=== PATIENT | female | born 1930 | race Caucasian/White ===

== ENCOUNTER 2016-08-18 08:52 | Inpatient (IN) | payer OTHER, BC ==
[2016-08-18] MEDS ORDERED: ONDANSETRON 4 MG/2 ML VIAL IVPB ONE (09:50)
[2016-08-18 09:53] VITALS: BMI 20.1
--- NOTE | 2016-08-18 09:57 | PDOC ---
History of Present Illness - General Chief Complaint: Pain, Acute Stated Complaint: SENT BY PCP,ABD PAIN Time Seen by Provider: 08/18/16 09:09 History Source: Patient, Family (daughter) Exam Limitations: No Limitations - History of Present Illness Initial Comments: 86 y/o F w/PMH of IBS, HTN, HLD, glaucoma presents to ER for abdominal pain and vomiting. Pt states she began having abd pain approximately 2 days ago. Pt's daughter called PCP yesterday night who told pt to come to ER at that time but came in today due to continuing of symptoms. At this time she went to [facility] and had clams. She had 1 episode of vomiting and some upper abdominal pain. Yesterday she continued to have 3 episodes of vomiting which was non- bloody, non-bilious, with continued abdominal pain which was unchanged. The pain is radiated as a 3/10 and described more as a discomfort with occasional radiation to the back. She has not been eating or drinking since her meal 2 days ago. Last BM was 2 days ago and pt states she has not been able to pass gas for 1-2 days. In the emergency room her BP was noted to be 234/96. She states her systolic normally runs in the 180s. She denies fevers, chills, recent travel, sick contacts, chest pain, light-headedness, dizziness, visual changes, ringing in ears, dysuria, blood in stool, blood in urine. Smokes 6-7 cigarettes per day since a teenager. Social alcohol use. 3 abdominal surgeries in the past: Hysterectomy, L and R Salpingectomy. PCP: Dr. Grant Past History - Past Medical History Allergies/Adverse Reactions: Allergies Allergy/AdvReac Type Severity Reaction Status Date / Time No Known Allergies Allergy Verified 08/18/16 09:32 Home Medications: Ambulatory Orders Amlodipine Besylate [Norvasc -] 5 mg PO DAILY 08/18/16 Atorvastatin Ca [Lipitor] 40 mg PO HS 08/18/16 Docusate Sodium [Colace -] 200 mg PO DAILY 08/18/16 Famotidine 20 mg PO DAILY 08/18/16 Ferrous Sulfate [Feosol] 325 mg PO TID 08/18/16 Folic Acid 1 mg PO DAILY 08/18/16 Losartan Potassium [Cozaar -] 25 mg PO DAILY 08/18/16 Mesalamine [Pentasa] 0 mg PO BID 08/18/16 Mirtazapine [Remeron -] 15 mg PO HS 08/18/16 Review of Systems - Review of Systems Able to Perform ROS?: Yes Comments:: CONSTITUTIONAL: +loss of appetite Absent: fever, chills, diaphoresis HEENT: Absent: rhinorrhea, throat pain, ear pain, eye pain, visual Changes CARDIOVASCULAR: Absent: chest pain, palpitations, irregular heart rate, lightheadedness, peripheral edema RESPIRATORY: Absent: cough, shortness of breath, wheezing, stridor, hemoptysis GASTROINTESTINAL: +abdominal pain, nausea, vomiting Absent: abdominal distension, diarrhea, constipation, melena, hematochezia GENITOURINARY: Absent: dysuria, hematuria MUSCULOSKELETAL: Absent: joint swelling NEUROLOGIC: Absent: headache, dizziness, unsteady gait, mental status changes PSYCHIATRIC: Absent: anxiety, depression, suicidal or homicidal ideation, hallucinations. *Physical Exam - Physical Exam Comments: GENERAL: Well developed, well nourished. Awake and alert. In no acute distress. HEENT: Fundoscopy with non-engorged vessels. Normocephalic, atraumatic. PERRLA, EOMI. No conjunctival pallor. Sclera are non- icteric. Oropharynx is clear. NECK: Supple. Full ROM. No JVD. Carotid pulses 2+ and symmetric, without bruits. No thyromegaly. No lymphadenopathy. CARDIOVASCULAR: Regular rate and rhythm. No murmurs, rubs, or gallops. Distal pulses are 2+ and symmetric. PULMONARY: No evidence of respiratory distress. Lungs clear to auscultation bilaterally. No wheezing, rales or rhonchi. ABDOMINAL: +diffuse tenderness. [place] negative. Hypoactive bowel sounds. Soft abdomen. No rebound or guarding. MUSCULOSKELETAL: No bony deformities or tenderness. No CVA tenderness. EXTREMITIES: No edema. No calf tenderness. SKIN: Warm and dry. No rashes. No jaundice. NEUROLOGICAL: Alert, awake, appropriate. Cranial nerves 2-12 grossly intact. Gait is normal without ataxia. PSYCHIATRIC: Cooperative. Good eye contact. Appropriate mood and affect. Heart Score/ECG Review - ECG Intrepretation Comment:: EKG: NSR @ 82 bpm Left axis deviation QTc 464 ms ED Treatment Course - LABORATORY CBC & Chemistry Diagram: 08/18/16 10:02 08/18/16 10:30 Medical Decision Making - Medical Decision Making 08/18/16 09:57 Will work up patient for hypertensive emergency as BP is 234/96. Will also work up pt for abdominal pain for pancreatitis, obstruction, cholecystitis, cholelithiasis, aortic aneurysm, VT Ordered: CBCD, CMP, lipase, EKG, UA, cardiac profile IV zofran 4 mg, pepcid IV 20 mg Amlodipine PO 5 mg and Losartan 25 mg PO (home meds which the pt did not take today) ordered for HTN. 08/18/16 10:03 EKG: NSR @ 82 bpm Left axis deviation QTc [address] segment changes. 08/18/16 10:21 Will give enalpril 1.25 mg IV as well 08/18/16 11:16 WBC 13.2; Still awaiting CMP. Pt in bed comfortable at this time. 08/18/16 11:31 CMP shows Cr of 1.7 Alk phos, ALT/AST wnl Called Dr. Grant's office and requested latest labs. Office is faxing over labs at this time. 08/18/16 11:38 Cr on 06/21/16 according to office records was 2.28 At this time with chronic renal insufficiency will get abd and pelvis CT w/o contrast to r/o SBO 08/18/16 11:46 BP is now at 183/85, pt still asymptomatic. Pt at goal currently with approximately 22% drop in BP. 08/18/16 13:49 CT shows: No evidence of SBO. Normal stool burden in the colon with multiple diverticula mainly in the descending and sigmoid colon without evidence of acute diverticulitis. Pancreas, gallbladder, and both adrenal glands appear unremarkable. Anuerysmal dilatation of the infrarenal abdominal aorta is again seen now measuring 4.9 cm in AP dimension. On the prior exam it measured 4.5 cm. 08/18/16 14:09 Pt's BP still elevated at 180/93. Pt with tenderness in RLQ but with no nausea currently. Case discussed with Dr. Grant, pt to be admitted inpatient. Pt to be given another 5 mg PO amlodipine at this time. As pt has history of IBS and acute colitis will also consult Dr. Kelly and Dr. Camargo as per Dr. Grant. Pt to be admitted for acute colitis. 08/18/16 15:[address] Trivedi who states that acute colitis is unlikely with CT abd/ pelvis not showing evidence of acute colitis. The patient also has a more extensive history with Dr. Miramontes and may require changing to consult to Dr. Miramontes unless otherwise requested by Dr. Grant. 08/18/16 15:[address] Grant who agrees that consult should be changed to Dr. Miramontes. *DC/Admit/Observation/Transfer Diagnosis at time of Disposition: Acute colitis, Nausea & vomiting Abdominal pain Qualifiers: Abdominal location: unspecified location Qualified Code(s): R10.9 - Unspecified abdominal pain - Discharge Dispostion Condition at time of disposition: Stable Admit: Yes - Referrals
[2016-08-18] MEDS ORDERED: FAMOTIDINE 20 MG/50 ML IVPB 50 ML IVPB ONE ×2 (10:08→10:16)
[2016-08-18] MEDS ORDERED: amLODIPine BESYLATE 5 MG TABLET (FP) PO ONE ×3 (10:11→14:06)
[2016-08-18] MEDS ORDERED: LOSARTAN POTASSIUM 25 MG TABLET PO ONE (10:11)
[2016-08-18] MEDS ORDERED: ONDANSETRON 4 MG/2 ML VIAL ONE (10:16)
[2016-08-18] MEDS ORDERED: ENALAPRILAT DIHYDRATE 1.25 MG/1 ML VIAL IVPB ONE (10:20)
[2016-08-18] MEDS ORDERED: ENALAPRILAT DIHYDRATE 2.5 MG/2 ML VIAL IVPB ONE (10:26)
[2016-08-18] MEDS ORDERED: amLODIPine BESYLATE 5 MG TABLET (FP) ONE ×2 (10:26→14:23)
[2016-08-18] MEDS ORDERED: LOSARTAN POTASSIUM 25 MG TABLET ONE (10:26)
--- NOTE | 2016-08-18 10:28 | PDOC ---
Attending Attestation - Resident Resident Name: Kingsley Duran - ED Attending Attestation I have performed the following: I have examined & evaluated the patient, The case was reviewed & discussed with the resident, I agree w/resident's findings & plan, Exceptions are as noted - HPI HPI: 08/18/16 10:25 86-year-old female with history of abdominal surgeries presents with abdominal pain with nausea/vomiting and decreased rectal output for several days. - Physicial Exam PE: 08/18/16 10:26 Hypertensive, afebrile. Abdomen is soft but tender diffusely with guarding primarily in the right abdomen - Medical Decision Making 08/18/16 10:26 Patient seen and evaluated with the resident. I agree with the overall evaluation, assessment, and management with the following summary of visit: 86-year-old female with abdominal pain/intractable nausea vomiting for several days in the setting of decreased rectal output. Presentation seems most consistent with SBO, she is hypertensive likely secondary to not tolerating her blood pressure medications, has no signs or symptoms of endorgan injury, EKG is nonischemic. Labs, urinalysis Pain control, IV fluids, antiemetics Etiology of the abdomen and pelvis Blood pressure control Reassess, likely admission Heart Score/ECG Review #1 ECG reviewed & interpreted by me at: 09:20 General ECG Interpretation: Sinus Rhythm, Normal Rate (82), Normal Intervals, No acute ischemic changes
[2016-08-18 10:41] LABS: BASOPHIL 0.2 % (0-2.0); EOSINOPHIL 0.2 % (0-4.5); MCH 28.1 pg (25.7-33.7); MCHC 32.9 g/dl (32.0-36.0); MEAN CELL VOLUME 85.4 fl (80-96); MEAN PLT VOLUME 6.8 fl (7.5-11.1); NEUTROPHILS 87.7 % (42.8-82.8); PLATELET COUNT 306 K/MM3 (134-434); RDW 14.9 % (11.6-15.6); WHITE BLOOD COUNT 13.2 K/mm3 (4.0-10.0)
[2016-08-18 11:09] LABS: ALBUMIN 4.4 g/dl (3.4-5.0); BILIRUBIN,TOTAL 0.6 mg/dL (0.2-1.0); CREATININE 1.7 mg/dL (0.55-1.02); TOT PROT 9.1 g/dl (6.4-8.2)
[2016-08-18 11:12] LABS: TROPONIN I 0.02 ng/ml (0.00-0.05)
--- NOTE | 2016-08-18 12:52 | EKG ---
Test Reason : Blood Pressure : / mmHG Vent. Rate : 082 BPM Atrial Rate : 082 BPM P-R Int : 132 ms QRS Dur : 084 ms QT Int : 398 ms P-R-T Axes : -09 -37 052 degrees QTc Int : 464 ms POOR DATA QUALITY, INTERPRETATION MAY BE ADVERSELY AFFECTED NORMAL SINUS RHYTHM LEFT AXIS DEVIATION ABNORMAL ECG WHEN COMPARED WITH ECG OF 11-FEB-2008 21:13, NO SIGNIFICANT CHANGE WAS FOUND Confirmed by EDUAR GRADY MD ([id number]) on 08/18/2016 12:52:21 PM Referred By: Confirmed By:EDUAR GRADY MD
[2016-08-18] MEDS ORDERED: LABETALOL HCL 5 MG/1 ML (100MG/20 ML VIAL) IVPUSH ONE (15:44)
--- NOTE | 2016-08-18 16:09 | CONSULT ---
Consult Consult Specialty:: Surgery Referred by:: Rudy yu Reason for Consultation:: Abdominal pain. - History of Present Illness Chief Complaint: Abdominal pain for the past week, currently not in pain. She is nauseous, went to Dr. Grant's office who suggested hospiatlisation. Denies any diarrhoea or rectal bleeding. - History Source History Provided By: Patient, Family Member - Past Medical History Gastrointestinal: Yes: Inflamatory Bowel Disease - Smoking History Smoking history: Current every day smoker Have you smoked in the past 12 months: Yes Aproximately how many cigarettes per day: 7 Home Medications - Allergies Allergies/Adverse Reactions: Allergies Allergy/AdvReac Type Severity Reaction Status Date / Time No Known Allergies Allergy Verified 08/18/16 09:32 - Home Medications Home Medications: Ambulatory Orders Amlodipine Besylate [Norvasc -] 5 mg PO DAILY 08/18/16 Atorvastatin Ca [Lipitor] 40 mg PO HS 08/18/16 Docusate Sodium [Colace -] 200 mg PO DAILY 08/18/16 Famotidine 20 mg PO DAILY 08/18/16 Ferrous Sulfate [Feosol] 325 mg PO TID 08/18/16 Folic Acid 1 mg PO DAILY 08/18/16 Losartan Potassium [Cozaar -] 25 mg PO DAILY 08/18/16 Mesalamine [Pentasa] 0 mg PO BID 08/18/16 Mirtazapine [Remeron -] 15 mg PO HS 08/18/16 Physical Exam Vital Signs: Vital Signs Temperature 97.3 F L 08/18/16 09:15 Pulse Rate 79 08/18/16 15:20 Respiratory Rate 16 08/18/16 15:20 Blood Pressure 206/105 08/18/16 15:20 O2 Sat by Pulse Oximetry (%) 100 08/18/16 15:20 Imaging - Results Cat Scan: Report Reviewed Problem List - Problems (1) Abdominal pain Code(s): R10.9 - UNSPECIFIED ABDOMINAL PAIN Qualifiers: Abdominal location: unspecified location Qualified Code(s): R10.9 - Unspecified abdominal pain (2) Nausea & vomiting Code(s): R11.2 - NAUSEA WITH VOMITING, UNSPECIFIED (3) Colitis Code(s): K52.9 - NONINFECTIVE GASTROENTERITIS AND COLITIS, UNSPECIFIED Assessment/Plan Suggest vascular surgery for assessment of the patency of the vascular graft. No acute abdomen at this time. Will follow.
[2016-08-18] MEDS ORDERED: ONDANSETRON 4 MG/2 ML VIAL IVPB PRN (16:20)
--- NOTE | 2016-08-18 16:27 | HP ---
Admitting History and Physical - Admission Chief Complaint: 86 Y.Of WAS bi BY HER DAUGHTER FOR INTRACTABLE VOMITING FOR 24 HRS. AND RIGHT ABDOMINAL PAIN History of Present Illness: 2016 AORTIC ABDOMINAL ANEURYSMS STENTS. 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 sUBSEQUENTLY UNDERWENT REHAB WITH RECOVERY OF KIDNEYS FX. HTN HISTORY OF COLITIS, ?IBD AND ASACOL TREATMENT. 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 Cardiovascular: Yes: HTN Pulmonary: Yes: COPD Gastrointestinal: Yes: Inflamatory Bowel Disease Hepatobiliary: No: Cirrhosis, Cholelithiasis, Cholecystitis, Choledocholithiasis , Hepatitis A, Hepatitis B, Hepatitis C, Other Renal/: Yes: Renal Inusuff Reproductive: Yes: Postmenopausal Heme/Onc: Yes: Anemia Infectious Disease: No: AIDS, C-Diff, Herpes Zoster, HIV, MRSA, STD's, Tuberculosis, VREF, Other Psych: No: Addictions, Anxiety, Bipolar, Depression, Panic, Psychosis, Schizophrenia, Other Musculoskeletal: Yes: Osteoarthritis Rheumatology: No: Fibromyalgia, Gout, Lupus, Rheumatoid Arthritis, Sarcoidosis, Vasculitis, Other ENT: No: Allergic Rhinitis, Sinusitis, Other Dermatology: No: Basal Cell, Cellulitis, Eczema, Melanoma, Psoriasis, Squamous Cell, Other - Past Surgical History Past Surgical History: Yes: AAA Repair - Smoking History Smoking history: Current every day smoker Have you smoked in the past 12 months: Yes Aproximately how many cigarettes per day: 7 - Social History Usual Living Arrangement: Yes: Alone History of Recent Travel: No Home Medications - Allergies Allergies/Adverse Reactions: Allergies Allergy/AdvReac Type Severity Reaction Status Date / Time No Known Allergies Allergy Verified 08/18/16 09:32 - Home Medications Home Medications: Ambulatory Orders Amlodipine Besylate [Norvasc -] 5 mg PO DAILY 08/18/16 Atorvastatin Ca [Lipitor] 40 mg PO HS 08/18/16 Docusate Sodium [Colace -] 200 mg PO DAILY 08/18/16 Famotidine 20 mg PO DAILY 08/18/16 Ferrous Sulfate [Feosol] 325 mg PO TID 08/18/16 Folic Acid 1 mg PO DAILY 08/18/16 Losartan Potassium [Cozaar -] 25 mg PO DAILY 08/18/16 Mesalamine [Pentasa] 0 mg PO BID 08/18/16 Mirtazapine [Remeron -] 15 mg PO HS 08/18/16 Family Disease History - Family Disease History Family History: Unremarkable Review of Systems - Review of Systems Constitutional: reports: Loss of Appetite, Unintentional Wgt. Loss, Weakness Eyes: denies: Blind Spots, Blurred Vision, Double Vision, Photophobia HENT: denies: Ear Discharge, Epistaxis, Gingival Bleeding, Nasal Congestion, Throat Pain Neck: denies: Decreased ROM, Lumps, Pain on Movement, Swollen Glands Cardiovascular: reports: Edema. denies: Chest Pain Respiratory: denies: Cough, Exercise Intolerance, Snoring, SOB Gastrointestinal: reports: Abdominal Pain, Bloating, Nausea, Vomiting. denies: Rectal Bleeding, Vomiting Blood Genitourinary: denies: Discharge, Dysuria, Flank Pain, Hematuria Musculoskeletal: reports: No Symptoms Integumentary: reports: No Symptoms Neurological: denies: Change in LOC, Change in Speech, Confusion, Headache Hematology/Lymphatic: reports: No Symptoms Psychiatric: reports: No Symptoms, Altered Sleep Pattern Physical Examination Vital Signs: Vital Signs Temperature 97.3 F L 08/18/16 09:15 Pulse Rate 79 08/18/16 15:20 Respiratory Rate 16 08/18/16 15:20 Blood Pressure 206/105 08/18/16 15:20 O2 Sat by Pulse Oximetry (%) 100 08/18/16 15:20 Constitutional: Yes: Anxious, Mild Distress Eyes: Yes: Conjunctiva Clear, EOM Intact HENT: Yes: Atraumatic, Normocephalic Neck: Yes: Supple, Trachea Midline Cardiovascular: Yes: Regular Rate and Rhythm. No: Bradycardia, Tachycardia, JVD Respiratory: Yes: Regular, CTA Bilaterally. No: Accessory Muscle Use Gastrointestinal: Yes: Soft, Tenderness (rlq). No: Abdomen, Obese, Ascites, Palpable Mass ...Rectal Exam: No: Mass Musculoskeletal: Yes: WNL Extremities: No: Calf Tenderness, Cold, Cyanosis Edema: Yes Edema: LLE: 1+, RLE: 1+ Peripheral Pulses WNL: Yes Peripheral Pulses: Left Doralis Pedis: 1+, Right Dorsalis Pedis: 1+ Integumentary: Yes: WNL Neurological: Yes: Alert, Oriented. No: Aphasia ...Motor Strength: WNL Psychiatric: Yes: WNL, Alert, Oriented. No: Agitated, Suicidal Ideation Imaging - Results Cat Scan: Report Reviewed EKG: Report Reviewed Problem List - Problems (1) Abdominal pain Assessment/Plan: cAN BE DUE TO ACUTE DIVERTICULITIS OF THE CECUM COLITIS POSSIBLE ACUTE GASTRO-ENTERITIS, NEEDS BETTER ct WITH po CONSULT-WHEN NOT VOMITIG IV UNASYN, IV FLUIDS, NPO, ZOFRAN PRN, GI CONSULT SPOKE TO SURGEON. Code(s): R10.9 - UNSPECIFIED ABDOMINAL PAIN Qualifiers: Abdominal location: right lower quadrant Qualified Code(s): R10.31 - Right lower quadrant pain (2) AAA (abdominal aortic aneurysm) Assessment/Plan: RECENTLY REPAIRED. WILL ASK vASCULAR CONSULT. Code(s): I71.4 - ABDOMINAL AORTIC ANEURYSM, WITHOUT RUPTURE Qualifiers: Presence of rupture: without rupture Qualified Code(s): I71.4 - Abdominal aortic aneurysm, without rupture (3) HTN (hypertension) Assessment/Plan: eXACERBATED BY NOT BEING ABLE TO TAKE ORAL MEDS rESTART MEDS cARDIOLOGY iV lASIX, ntp. Code(s): I10 - ESSENTIAL (PRIMARY) HYPERTENSION Qualifiers: Hypertension type: essential hypertension Qualified Code(s): I10 - Essential (primary) hypertension
[2016-08-18] MEDS ORDERED: AMPICILLIN NA/SULBACTAM NA 100 ML IVPB SCH ×3 (16:30→18:00)
[2016-08-18] MEDS ORDERED: FUROSEMIDE 40 MG/4 ML INJECTABLE VIAL IVPUSH ONE (16:36)
[2016-08-18] MEDS: NITROGLYCERIN 2% OINTMENT - 1GM PACKET TD SCH ×2 (16:58→21:37)
[2016-08-18] MEDS: D5-1/2NS+20 MEQ KCL - 1,000 ML IV SCH (17:40)
[2016-08-18] MEDS ORDERED: NITROGLYCERIN 2% OINTMENT - 1GM PACKET TD SCH (18:00)
--- NOTE | 2016-08-18 20:14 | CONSULT ---
Consult Consult Specialty:: Pulm/CCM Reason for Consultation:: hypertensive urgency - History of Present Illness Chief Complaint: n/v abd pain History of Present Illness: This is a 86 yo woman with PMH: COPD (active tobacco), HTN, HL, IBS (asacol), AAA s/p stent (2016)c /b CVA and AFR briefly on iHD now resolved with CKD (SCr 2.2)who present with progressive nausea and vomiting (NBNB) over the last 4 days with associated colicy abdomenal pain (3/10). She has had decreased po intake and no BMs. In the ED she was found to have hypertensive urgency (BP: 234/96). She was treated for her HTN with losartan, amlodipine and enalapril iv. SBP improved 180s. Workup for abd pain negative for pancreatitis, LFTs WNL. CTAP shows: No evidence of SBO. Normal stool burden in the colon with multiple diverticula mainly in the descending and sigmoid colon without evidence of acute diverticulitis. Pancreas, gallbladder, and both adrenal glands appear unremarkable. Aneurysmal dilatation of the infrarenal abdominal aorta 4.9 cm in AP dimension. Surgery was consulted w/ evidence of acute abdomen on exam. LAbs significant for WBC: 13.2, ESR: 56, SCr 1.7, lipase 153. She was started on unasyn for coverage of abd sepsis. PAtient transferred to ICU for management of hypertension. 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 Cardio/Vascular: Yes: HTN Pulmonary: Yes: COPD Gastrointestinal: Yes: Inflamatory Bowel Disease Hepatobiliary: No: Cirrhosis, Cholelithiasis, Cholecystitis, Choledocholithiasis , Hepatitis A, Hepatitis B, Hepatitis C, Other Renal/: Yes: Renal Inusuff ...: No Infectious Disease: No: AIDS, C-Diff, Herpes Zoster, HIV, MRSA, STD's, Tuberculosis, VREF, Other Psych: No: Addictions, Anxiety, Bipolar, Depression, Panic, Psychosis, Schizophrenia, Other Musculoskeletal: Yes: Osteoarthritis Rheumatology: No: Fibromyalgia, Gout, Lupus, Rheumatoid Arthritis, Sarcoidosis, Vasculitis, Other ENT: No: Allergic Rhinitis, Sinusitis, Other Dermatology: No: Basal Cell, Cellulitis, Eczema, Melanoma, Psoriasis, Squamous Cell, Other - Past Surgical History Past Surgical History: Yes: AAA Repair - Alcohol/Substance Use Hx Alcohol Use: No - Smoking History Smoking history: Current every day smoker Have you smoked in the past 12 months: Yes Aproximately how many cigarettes per day: 7 - Social History History of Recent Travel: No Home Medications - Allergies Allergies/Adverse Reactions: Allergies Allergy/AdvReac Type Severity Reaction Status Date / Time No Known Allergies Allergy Verified 08/18/16 09:32 - Home Medications Home Medications: Ambulatory Orders Amlodipine Besylate [Norvasc -] 5 mg PO DAILY 08/18/16 Atorvastatin Ca [Lipitor] 40 mg PO HS 08/18/16 Docusate Sodium [Colace -] 200 mg PO DAILY 08/18/16 Famotidine 20 mg PO DAILY 08/18/16 Ferrous Sulfate [Feosol] 325 mg PO TID 08/18/16 Folic Acid 1 mg PO DAILY 08/18/16 Losartan Potassium [Cozaar -] 25 mg PO DAILY 08/18/16 Mesalamine [Pentasa] 1,500 mg PO BID 08/18/16 Mirtazapine [Remeron -] 15 mg PO HS 08/18/16 Family Disease History - Family Disease History Family History: Unremarkable Review of Systems - Review of Systems Constitutional: reports: Loss of Appetite Gastrointestinal: reports: Abdominal Pain, Nausea, Vomiting Pain Intensity: 3 Physical Exam Vital Signs: Vital Signs Temperature 98.1 F 08/18/16 19:00 Pulse Rate 78 08/18/16 19:00 Respiratory Rate 18 08/18/16 19:00 Blood Pressure 185/89 08/18/16 19:00 O2 Sat by Pulse Oximetry (%) 98 08/18/16 18:17 Current Medications Potassium Chloride/Dextrose/Sod Cl (D5-1/2ns+20 Meq Kcl -) 1,000 mls @ 100 mls/ hr IV ASDIR [facility] Last Admin: 08/18/16 17:40 Dose: 100 mls/hr Ampicillin Sodium/Sulbactam Sodium (Unasyn 1.5 Gm (Pre-Docked)) 100 mls @ 200 mls/hr IVPB BID@0600,1800 [facility] Last Admin: 08/18/16 18:10 Dose: 200 mls/hr Nitroglycerin (Nitro-Bid 2% Paste -) 1 inch TD Q6HPO [facility] Last Admin: 08/18/16 16:58 Dose: 1 inch Ondansetron HCl (Zofran Injection) 4 mg IVPB Q6H PRN PRN Reason: NAUSEA Pantoprazole Sodium (Protonix -) 40 mg PO DAILY ELLE Constitutional: Yes: No Distress, Calm Eyes: Yes: EOM Intact Cardiovascular: Yes: Regular Rate and Rhythm, S1, S2 Respiratory: Yes: CTA Bilaterally Gastrointestinal: Yes: Normal Bowel Sounds, Soft, Tenderness Edema: LLE: 1+, RLE: 1+ Integumentary: Yes: WNL Neurological: Yes: Alert, Oriented Psychiatric: Yes: Oriented Labs: CBCD WBC 13.2 K/mm3 (4.0-10.0) H 08/18/16 10:02 RBC 4.34 M/mm3 (3.60-5.2) 08/18/16 10:02 Hgb 12.2 GM/dL (10.7-15.3) 08/18/16 10:02 Hct 37.1 % (32.4-45.2) 08/18/16 10:02 MCV 85.4 fl (80-96) 08/18/16 10:02 MCHC 32.9 g/dl (32.0-36.0) 08/18/16 10:02 RDW 14.9 % (11.6-15.6) 08/18/16 10:02 Plt Count 306 K/MM3 (134-434) 08/18/16 10:02 MPV 6.8 fl (7.5-11.1) L 08/18/16 10:02 CMP Sodium 137 mmol/L (136-145) 08/18/16 10:30 Potassium 3.6 mmol/L (3.5-5.1) 08/18/16 10:30 Chloride 96 mmol/L (98-107) L 08/18/16 10:30 Carbon Dioxide 31 mmol/L (21-32) 08/18/16 10:30 Anion Gap 10 (8-16) 08/18/16 10:30 BUN 25 mg/dL (7-18) H 08/18/16 10:30 Creatinine 1.7 mg/dL (0.55-1.02) H 08/18/16 10:30 Creat Clearance w eGFR 28.36 (>60) 08/18/16 10:30 Random Glucose 140 mg/dL (74-106) H 08/18/16 10:30 Calcium 10.0 mg/dL (8.5-10.1) 08/18/16 10:30 Total Bilirubin 0.6 mg/dL (0.2-1.0) 08/18/16 10:30 AST 21 U/L (15-37) 08/18/16 10:30 ALT 18 U/L (12-78) 08/18/16 10:30 Alkaline Phosphatase 104 U/L (45-117) 08/18/16 10:30 Total Protein 9.1 g/dl (6.4-8.2) H 08/18/16 10:30 Albumin 4.4 g/dl (3.4-5.0) 08/18/16 10:30 CARDIAC ENZYMES Creatine Kinase 468 IU/L (26-192) H 08/18/16 10:30 Troponin I 0.02 ng/ml (0.00-0.05) 08/18/16 10:30 Laboratory Tests 08/18/16 16:18 ESR 56 H Imaging - Results Cat Scan: Report Reviewed, Image Reviewed Problem List - Problems (1) AAA (abdominal aortic aneurysm) Code(s): I71.4 - ABDOMINAL AORTIC ANEURYSM, WITHOUT RUPTURE Qualifiers: Presence of rupture: without rupture Qualified Code(s): I71.4 - Abdominal aortic aneurysm, without rupture (2) Abdominal pain Code(s): R10.9 - UNSPECIFIED ABDOMINAL PAIN Qualifiers: Abdominal location: right lower quadrant Qualified Code(s): R10.31 - Right lower quadrant pain (3) Nausea & vomiting Code(s): R11.2 - NAUSEA WITH VOMITING, UNSPECIFIED (4) Hypertensive urgency Code(s): I16.0 - HYPERTENSIVE URGENCY (5) COPD (chronic obstructive pulmonary disease) Code(s): J44.9 - CHRONIC OBSTRUCTIVE PULMONARY DISEASE, UNSPECIFIED (6) CKD (chronic kidney disease) Code(s): N18.9 - CHRONIC KIDNEY DISEASE, UNSPECIFIED Assessment/Plan a/p: 86 yo woman COPD, HTN, HL, ABS, CKD, AAA s/p stent (2015) presenting with 4 days of progressive n/v and abdominal pain found to have hypertensive urgency. ABD pain w/ n/v in the setting of normal abdominal exam c/f intermittent bowel ischemia vs IBS flair (ESR 56, though no colitis seen on CT) -Cardiology consulted -restarted on antiHTN meds -Goal SBP decreased ~20% tonight (SBP 170-180) -vascular consult -will likely need CTAP w/ IV/po contrast -will check lactate to eval for possible ischemia -renal dose medications -will cont ABX -IV fluids -zofran prn -O2 for sat >88% -incentive spirometry -DVT prophylaxis -PPI Boerem ACNP Pulm/CCM CCT: 35m
[2016-08-18] MEDS ORDERED: hydrALAZINE HCL 20 MG/ML VIAL IM PRN (21:22)
[2016-08-18 21:25] LABS: URINE APPEARANCE CLEAR; URINE BILIRUBIN NEGATIVE (NEGATIVE); URINE COLOR STRAW; URINE GLUCOSE (UA) NEGATIVE (NEGATIVE); URINE KETONE NEGATIVE (NEGATIVE); URINE LEUK ESTERASE NEGATIVE (NEGATIVE); URINE NITRITE NEGATIVE (NEGATIVE); URINE UROBILINOGEN NEGATIVE E.U./dl (0.2-1.0)
[2016-08-18 21:31] LABS: URINE BLOOD 1+ (NEGATIVE); URINE PROTEIN 2+ (NEGATIVE)
[2016-08-18 21:40] LABS: URINE HYALINE CAST 1 /lpf; URINE MUCUS RARE; URINE RBC 3 /hpf (0-3); URINE WBC 1 /hpf (3-5)
[2016-08-18] MEDS: NICOTINE 14 MG/24 HOURS TOPICAL PATCH TD SCH (22:41)
[2016-08-19] MEDS: AMPICILLIN NA/SULBACTAM NA 1.5 GM/100 ML PRE-DOCKED IVPB SCH ×3 (01:00→18:02)
[2016-08-19] MEDS: NITROGLYCERIN 2% OINTMENT - 1GM PACKET TD SCH ×4 (01:41→19:28)
[2016-08-19] MEDS ORDERED: AMPICILLIN NA/SULBACTAM NA 1.5 GM in SODIUM CHLORIDE 100 ML IVPB SCH (02:00)
[2016-08-19 06:11] LABS: BASOPHIL 0.3 % (0-2.0); EOSINOPHIL 0.7 % (0-4.5); MCH 27.6 pg (25.7-33.7); MCHC 32.4 g/dl (32.0-36.0); MEAN CELL VOLUME 85.3 fl (80-96); MEAN PLT VOLUME 6.9 fl (7.5-11.1); NEUTROPHILS 80.8 % (42.8-82.8); PLATELET COUNT 275 K/MM3 (134-434); RDW 15.1 % (11.6-15.6); WHITE BLOOD COUNT 12.3 K/mm3 (4.0-10.0)
[2016-08-19 06:32] LABS: ALBUMIN 3.6 g/dl (3.4-5.0); MAGNESIUM 2.2 mg/dL (1.8-2.4); PHOSPHOROUS 3.8 mg/dL (2.5-4.9)
[2016-08-19 06:35] LABS: BILIRUBIN,TOTAL 0.5 mg/dL (0.2-1.0); COCKROFT - GAULT 16.116; CREATININE 1.9 mg/dL (0.55-1.02); TOT PROT 7.6 g/dl (6.4-8.2)
--- NOTE | 2016-08-19 07:19 | PN ---
Physical Exam: SUBJECTIVE: Patient seen and examined says she feels a hungry. denies chest pain, palpitations, changes in vision, eye pain, headache, vomiting , constipation/diarrhea, sob, difficulty breathing. OBJECTIVE: Vital Signs Period Temp Pulse Resp BP Sys/Rossi Pulse Ox Last 24 Hr 98.1 F-98.5 F 73-87 16-23 136-210/71-105 94-100 GENERAL: The patient is awake, alert, in no acute distress. HEAD: Normal with no signs of trauma. EYES: PERRL, extraocular movements intact, sclera anicteric, conjunctiva clear. No ptosis. ENT: nares patent, oropharynx clear without exudates, dry mucous membranes. no erythema/oral lesions. NECK: Trachea midline, full range of motion, supple. LUNGS: Breath sounds equal, clear to auscultation bilaterally, no wheezes, no crackles, no accessory muscle use. HEART: Regular rate and rhythm, S1, S2 without murmur, rub or gallop. ABDOMEN: Soft, TTP in RLQ, nondistended, normoactive bowel sounds, no guarding, no rebound, obturator and psoas's sign neg. well healed midline scar below umbilicus. EXTREMITIES: 2+ DP/radial b/l pulses, warm, well-perfused. NEUROLOGICAL: facial symmetry, Normal speech, 5/5 hand manager federal, hip extension, bicep extension and flexion, ankle dorsi and plantar flexion. SKIN: Warm, dry, normal turgor Laboratory Results - last 24 hr 08/18/16 08/18/16 08/18/16 16:18 20:00 21:30 WBC RBC Hgb Hct MCV MCHC RDW Plt Count MPV Neutrophils % Lymphocytes % Monocytes % Eosinophils % Basophils % ESR 56 H Sodium Potassium Chloride Carbon Dioxide Anion Gap BUN Creatinine Creat Clearance w eGFR Random Glucose Lactic Acid 1.8 Calcium Phosphorus Magnesium Total Bilirubin AST ALT Alkaline Phosphatase Total Protein Albumin Urine Color Straw Urine Appearance Clear Urine pH 6.0 Ur Specific [place] 1.020 Urine Protein 2+ H Urine Glucose (UA) Negative Urine Ketones Negative Urine Blood 1+ H Urine Nitrite Negative Urine Bilirubin Negative Urine Urobilinogen Negative Ur Leukocyte Esterase Negative Urine RBC 3 Urine WBC 1 Ur Epithelial Cells Rare Hyaline Casts 1 Urine Mucus Rare 08/19/16 08/19/16 08/19/16 05:20 05:20 05:20 WBC 12.3 H RBC 4.11 Hgb 11.4 Hct 35.0 MCV 85.3 MCHC 32.4 RDW 15.1 Plt Count 275 MPV 6.9 L Neutrophils % 80.8 Lymphocytes % 8.9 D Monocytes % 9.3 Eosinophils % 0.7 D Basophils % 0.3 ESR Sodium 138 Potassium 3.8 Chloride 98 Carbon Dioxide 27 Anion Gap 13 BUN 25 H Creatinine 1.9 H Creat Clearance w eGFR 24.95 Random Glucose 139 H Lactic Acid 1.0 Calcium 9.0 Phosphorus 3.8 Magnesium 2.2 Total Bilirubin 0.5 AST 13 L D ALT 14 D Alkaline Phosphatase 79 D Total Protein 7.6 Albumin 3.6 Urine Color Urine Appearance Urine pH Ur Specific [place] Urine Protein Urine Glucose (UA) Urine Ketones Urine Blood Urine Nitrite Urine Bilirubin Urine Urobilinogen Ur Leukocyte Esterase Urine RBC Urine WBC Ur Epithelial Cells Hyaline Casts Urine Mucus Active Medications Generic Name Dose Route Start Last Admin Trade Name Freq PRN Reason Stop Dose Admin Ampicillin Sodium/Sulbactam Sodium 1.5 gm 08/19/16 02:00 08/19/16 01:00 Unasyn 1.5 Gm (Pre-Docked) IVPB 1.5 gm Q8H-IV GERMÁN Administration Hydralazine HCl 10 mg 08/18/16 21:22 08/18/16 21:45 Apresoline Injection - IM 10 mg Q6H PRN Administration SBP >180 Potassium Chloride/Dextrose/Sod Cl 1,000 mls @ 100 mls/hr 08/18/16 16:30 17:40 D5-1/2ns+20 Meq Kcl - IV 100 mls/hr ASDIR GERMÁN Administration Nicotine 14 mg 08/18/16 22:00 08/18/16 22:41 Nicoderm Patch - TD 14 mg DAILY GERMÁN Administration Nitroglycerin 1 inch 08/18/16 17:00 08/19/16 06:05 Nitro-Bid 2% Paste - TD 1 inch Q6HPO GERMÁN Administration Ondansetron HCl 4 mg 08/18/16 16:20 08/18/16 21:36 Zofran Injection IVPB 4 mg Q6H PRN Administration NAUSEA Pantoprazole Sodium 40 mg 08/19/16 10:00 Protonix - PO DAILY GERMÁN ASSESSMENT/PLAN: 86 yr woman with HTN, COPD (current smoker) with abdominal infrarenal aortic anuerysm s/p stent placedment, hx of CVA presented to ED with intractable vomiting and abdominal pain for 4 days, found to have enlargement of aortic anuerysm and HTN urgency. Cardiovascular HTN urgency Hydralazine 25mg po q6h germán if SBP >180 Labetalol 100mg po BID if SBP> 160, DBP >100 - plan to titrate up if HR stable and BP remained elevated Norvasc 10mg po daily Nitroglycerin 1inch TD q6h IVF d5-1/2NS+20meq kcl @100cc/hr Aortic aneurysm - increased in size from 4.9 from 4.5, mural thrombus noted on CT scan. consult: dr. Castillo for surgical evaluation Renal (baseline Cr 1.4) PAUL, Cr 1.9 in setting of poor po intake and elevated BP, likely pre-renal - IVF, urine studies, renal ultrasound for further evaluation. consult:Dr. Appiah GI RLQ pain - possibly from right renal ischemia due to poor profusion through renal stent, doppler for further evaluation of flow, vs IBD CT scan with unremarkable pancreas and without colitis Unasyn q8hr, ivpb for possible gastritis as cause of vomiting. Consult: Dr. Tejeda Respiratory pt is a chronic everyday smoker, nicotine patch provided ID leucocytosis, on unasyn, possible GI origin of leucocytosis DVT: scd's Diet: NPO given recent vomiting, pending GI evaluation Visit type - Emergency Visit Emergency Visit: No - New Patient This patient is new to me today: Yes Date on this admission: 08/19/16 - Critical Care Critical Care patient: Yes Total Critical Care Time (in minutes): 39 Critical Care Statement: The care of this patient involved high complexity decision making to prevent further life threatening deterioration of the patient 's condition and/or to evalute & treat vital organ system(s) failure or risk of failure.
--- NOTE | 2016-08-19 08:40 | PN ---
Progress Note, Physician Chief Complaint: C/o Right low abdominal pain, no vomiting. History of Present Illness: 2016 AORTIC ABDOMINAL ANEURYSMS STENTS. 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 sUBSEQUENTLY UNDERWENT REHAB WITH RECOVERY OF KIDNEYS FX. HTN HISTORY OF COLITIS, ?IBD AND ASACOL TREATMENT. - Current Medication List Current Medications: Active Medications Amlodipine Besylate (Norvasc -) 10 mg PO DAILY [facility] Ampicillin Sodium/Sulbactam Sodium (Unasyn 1.5 Gm (Pre-Docked)) 1.5 gm IVPB Q8H -IV ELLE Last Admin: 08/19/16 01:00 Dose: 1.5 gm Hydralazine HCl (Apresoline Injection -) 10 mg IM Q6H PRN PRN Reason: SBP >180 Last Admin: 08/18/16 21:45 Dose: 10 mg Hydralazine HCl (Apresoline -) 25 mg PO QID [facility] Potassium Chloride/Dextrose/Sod Cl (D5-1/2ns+20 Meq Kcl -) 1,000 mls @ 100 mls/ hr IV ASDIR [facility] Last Admin: 08/18/16 17:40 Dose: 100 mls/hr Labetalol HCl (Normodyne -) 100 mg PO BID [facility] Nicotine (Nicoderm Patch -) 14 mg TD DAILY [facility] Last Admin: 08/18/16 22:41 Dose: 14 mg Nitroglycerin (Nitro-Bid 2% Paste -) 1 inch TD Q6HPO [facility] Last Admin: 08/19/16 06:05 Dose: 1 inch Ondansetron HCl (Zofran Injection) 4 mg IVPB Q6H PRN PRN Reason: NAUSEA Last Admin: 08/18/16 21:36 Dose: 4 mg Pantoprazole Sodium (Protonix -) 40 mg PO DAILY [facility] - Objective Vital Signs: Vital Signs Temperature 98.5 F 08/19/16 06:00 Pulse Rate 77 08/19/16 08:00 Respiratory Rate 21 08/19/16 08:00 Blood Pressure 180/88 08/19/16 08:00 O2 Sat by Pulse Oximetry (%) 99 08/19/16 08:00 Constitutional: Yes: Anxious, Mild Distress, Pallor, Thin Eyes: Yes: Conjunctiva Clear, EOM Intact HENT: Yes: Atraumatic, Normocephalic. No: Drooling Neck: Yes: Supple, Trachea Midline. No: Decreased ROM Cardiovascular: Yes: Regular Rate and Rhythm. No: Bradycardia, Tachycardia, JVD Respiratory: Yes: Regular, CTA Bilaterally. No: Accessory Muscle Use, Cough Gastrointestinal: Yes: Soft, Tenderness (RLQ). No: Abdomen, Obese ...Rectal Exam: Yes: Deferred (done yesterday) Genitourinary: No: Anuria, Bladder Distention, CVA Tenderness - Right, Hematuria Musculoskeletal: Yes: WNL Edema: Yes Edema: LLE: Trace, RLE: Trace Peripheral Pulses WNL: Yes Peripheral Pulses: Left Doralis Pedis: 1+, Right Dorsalis Pedis: 1+ Integumentary: Yes: WNL Neurological: Yes: Alert, Oriented. No: Aphasia, Dysarthria ...Motor Strength: WNL Psychiatric: Yes: Alert, Oriented. No: Agitated, Suicidal Ideation Labs: CBC, BMP 08/19/16 05:20 08/19/16 05:20 Laboratory Results - last 24 hr 08/18/16 08/18/16 08/18/16 10:02 10:30 10:30 WBC 13.2 H RBC 4.34 Hgb 12.2 Hct 37.1 MCV 85.4 MCHC 32.9 RDW 14.9 Plt Count 306 MPV 6.8 L Neutrophils % 87.7 H Lymphocytes % 6.6 L Monocytes % 5.3 Eosinophils % 0.2 Basophils % 0.2 ESR Sodium 137 Potassium 3.6 Chloride 96 L Carbon Dioxide 31 Anion Gap 10 BUN 25 H Creatinine 1.7 H Creat Clearance w eGFR 28.36 Random Glucose 140 H Lactic Acid Calcium 10.0 Phosphorus Magnesium Total Bilirubin 0.6 AST 21 ALT 18 Alkaline Phosphatase 104 Creatine Kinase 468 H CK-MB (CK-2) 3.708 H Troponin I 0.02 C-Reactive Protein 3.7 H Total Protein 9.1 H Albumin 4.4 Lipase 153 Urine Color Urine Appearance Urine pH Ur Specific [place] Urine Protein Urine Glucose (UA) Urine Ketones Urine Blood Urine Nitrite Urine Bilirubin Urine Urobilinogen Ur Leukocyte Esterase Urine RBC Urine WBC Ur Epithelial Cells Hyaline Casts Urine Mucus 08/18/16 08/18/16 08/18/16 16:18 20:00 21:30 WBC RBC Hgb Hct MCV MCHC RDW Plt Count MPV Neutrophils % Lymphocytes % Monocytes % Eosinophils % Basophils % ESR 56 H Sodium Potassium Chloride Carbon Dioxide Anion Gap BUN Creatinine Creat Clearance w eGFR Random Glucose Lactic Acid 1.8 Calcium Phosphorus Magnesium Total Bilirubin AST ALT Alkaline Phosphatase Creatine Kinase CK-MB (CK-2) Troponin I C-Reactive Protein Total Protein Albumin Lipase Urine Color Straw Urine Appearance Clear Urine pH 6.0 Ur Specific [place] 1.020 Urine Protein 2+ H Urine Glucose (UA) Negative Urine Ketones Negative Urine Blood 1+ H Urine Nitrite Negative Urine Bilirubin Negative Urine Urobilinogen Negative Ur Leukocyte Esterase Negative Urine RBC 3 Urine WBC 1 Ur Epithelial Cells Rare Hyaline Casts 1 Urine Mucus Rare 08/19/16 08/19/16 08/19/16 05:20 05:20 05:20 WBC 12.3 H RBC 4.11 Hgb 11.4 Hct 35.0 MCV 85.3 MCHC 32.4 RDW 15.1 Plt Count 275 MPV 6.9 L Neutrophils % 80.8 Lymphocytes % 8.9 D Monocytes % 9.3 Eosinophils % 0.7 D Basophils % 0.3 ESR Sodium 138 Potassium 3.8 Chloride 98 Carbon Dioxide 27 Anion Gap 13 BUN 25 H Creatinine 1.9 H Creat Clearance w eGFR 24.95 Random Glucose 139 H Lactic Acid 1.0 Calcium 9.0 Phosphorus 3.8 Magnesium 2.2 Total Bilirubin 0.5 AST 13 L D ALT 14 D Alkaline Phosphatase 79 D Creatine Kinase CK-MB (CK-2) Troponin I C-Reactive Protein Total Protein 7.6 Albumin 3.6 Lipase Urine Color Urine Appearance Urine pH Ur Specific [place] Urine Protein Urine Glucose (UA) Urine Ketones Urine Blood Urine Nitrite Urine Bilirubin Urine Urobilinogen Ur Leukocyte Esterase Urine RBC Urine WBC Ur Epithelial Cells Hyaline Casts Urine Mucus Problem List - Problems (1) Abdominal pain Assessment/Plan: cAN BE DUE TO ACUTE DIVERTICULITIS OF THE CECUM COLITIS POSSIBLE ACUTE GASTRO-ENTERITIS, NEEDS BETTER ct WITH po CONSULT-WHEN can take PO IV UNASYN, IV FLUIDS, NPO, ZOFRAN PRN, GI CONSULT SPOKE TO SURGEON. Code(s): R10.9 - UNSPECIFIED ABDOMINAL PAIN Qualifiers: Abdominal location: right lower quadrant Qualified Code(s): R10.31 - Right lower quadrant pain (2) AAA (abdominal aortic aneurysm) Assessment/Plan: RECENTLY REPAIRED. WILL ASK vASCULAR CONSULT. Code(s): I71.4 - ABDOMINAL AORTIC ANEURYSM, WITHOUT RUPTURE Qualifiers: Presence of rupture: without rupture Qualified Code(s): I71.4 - Abdominal aortic aneurysm, without rupture (3) HTN (hypertension), malignant Assessment/Plan: Noted that right kidney is smaller on CT. Both renal arteries stented. Intramural clot in Aorta-???occlusion of right renal artery stent. Will order renal arterial Doppler. Vascular consult, BP medical control Amlodipine, Hydralazine, Labetalol Code(s): I10 - ESSENTIAL (PRIMARY) HYPERTENSION (4) CKD (chronic kidney disease) Assessment/Plan: Worsening renal function Baseline creatinine was 1.4. Nephrology consult Hold off on ZENA/ARB/ Code(s): N18.9 - CHRONIC KIDNEY DISEASE, UNSPECIFIED Qualifiers: Chronic kidney disease stage: stage 3 (moderate) Qualified Code(s): N18.3 - Chronic kidney disease, stage 3 (moderate)
--- NOTE | 2016-08-19 08:49 | CON.CARD ---
Consult Consult Specialty:: Cardiology Referred by:: Dr. Grant Reason for Consultation:: Hypertension - History of Present Illness Chief Complaint: Nausea and vomiting History of Present Illness: 86 y/o F w/PMH of IBS, HTN, HLD, glaucoma presents to ER for abdominal pain and vomiting. Pt states she began having abd pain approximately 2 days ago. Pt's daughter called PCP yesterday night who told pt to come to ER at that time but came in today due to continuing of symptoms. At this time she went to [facility] and had clams. She had 1 episode of vomiting and some upper abdominal pain. Yesterday she continued to have 3 episodes of vomiting which was non- bloody, non-bilious, with continued abdominal pain which was unchanged. The pain is radiated as a 3/10 and described more as a discomfort with occasional radiation to the back. She has not been eating or drinking since her meal 2 days ago. Last BM was 2 days ago and pt states she has not been able to pass gas for 1-2 days. In the emergency room her BP was noted to be 234/96. PMH is significant for HTN and AAA s/p stent grat repair. She denies chest pain, SOB, palpitations. Denies chills. No PND or orthopnea. Denies syncope. Denies prior LA. - History Source History Provided By: Patient, Medical Record - Past Medical History BRIDGE RIGGER: Yes: Dementia Cardio/Vascular: Yes: HTN Pulmonary: Yes: COPD Gastrointestinal: Yes: Inflamatory Bowel Disease Hepatobiliary: No: Cirrhosis, Cholelithiasis, Cholecystitis, Choledocholithiasis , Hepatitis A, Hepatitis B, Hepatitis C, Other Renal/: Yes: Renal Inusuff ...: No Infectious Disease: No: AIDS, C-Diff, Herpes Zoster, HIV, MRSA, STD's, Tuberculosis, VREF, Other Psych: No: Addictions, Anxiety, Bipolar, Depression, Panic, Psychosis, Schizophrenia, Other Musculoskeletal: Yes: Osteoarthritis Rheumatology: No: Fibromyalgia, Gout, Lupus, Rheumatoid Arthritis, Sarcoidosis, Vasculitis, Other ENT: No: Allergic Rhinitis, Sinusitis, Other Dermatology: No: Basal Cell, Cellulitis, Eczema, Melanoma, Psoriasis, Squamous Cell, Other - Past Surgical History Past Surgical History: Yes: AAA Repair (complicated by transient ARF requiring HD and CVA) - Alcohol/Substance Use Hx Alcohol Use: No - Smoking History Smoking history: Current every day smoker Have you smoked in the past 12 months: Yes Aproximately how many cigarettes per day: 7 - Social History History of Recent Travel: No Home Medications - Allergies Allergies/Adverse Reactions: Allergies Allergy/AdvReac Type Severity Reaction Status Date / Time No Known Allergies Allergy Verified 08/18/16 09:32 - Home Medications Home Medications: Ambulatory Orders Amlodipine Besylate [Norvasc -] 5 mg PO DAILY 08/18/16 Atorvastatin Ca [Lipitor] 40 mg PO HS 08/18/16 Docusate Sodium [Colace -] 200 mg PO DAILY 08/18/16 Famotidine 20 mg PO DAILY 08/18/16 Ferrous Sulfate [Feosol] 325 mg PO TID 08/18/16 Folic Acid 1 mg PO DAILY 08/18/16 Losartan Potassium [Cozaar -] 25 mg PO DAILY 08/18/16 Mesalamine [Pentasa] 1,500 mg PO BID 08/18/16 Mirtazapine [Remeron -] 15 mg PO HS 08/18/16 Family Disease History - Family Disease History Family History: Unremarkable (not contributory to this presentation) Review of Systems Findings/Remarks: see HPI - Review of Systems Gastrointestinal: reports: Nausea, Vomiting Musculoskeletal: denies: No Symptoms, Back Pain, Crepitus, Decreased ROM, Extremity Pain, Joint Pain, Joint Swelling, Muscle Pain, Muscle Cramps, Muscle Weakness, Other Integumentary: denies: No Symptoms, Blister, Bruising, Change in Color, Eczema, Erythema, Incision, Lesions, Lump, Pallor, Pruritis, Rash, Wound, Other Neurological: denies: No Symptoms, Change in LOC, Change in Speech, Confusion, Dizziness, Headache, Incoordination, Numbness, Parasthesia, Pre-Existing Deficit , Seizure, Syncope, Tremors, Unsteady Gait, Weakness, Other Endocrine: denies: No Symptoms, Excessive Sweating, Flushing, Increased Hunger, Increased Thirst, Intolerance to Cold, Intolerance to Heat, Unexplained Weight Gain, Unexplained Weight Loss, Other Hematology/Lymphatic: denies: No Symptoms, Easily Bruised, Excessive Bleeding, Swollen Glands, Other Psychiatric: denies: No Symptoms, Altered Sleep Pattern, Anxiety, Depression, Hallucinations, Panic, Paranoia, Suicidal, Other - Risk Factors Known Risk Factors: Yes: Hypertension, Smoking Vital Signs: Vital Signs Temperature 98.5 F 08/19/16 06:00 Pulse Rate 77 08/19/16 08:00 Respiratory Rate 21 08/19/16 08:00 Blood Pressure 180/88 08/19/16 08:00 O2 Sat by Pulse Oximetry (%) 99 08/19/16 08:00 Constitutional: Yes: No Distress, Calm Eyes: Yes: Conjunctiva Clear Neck: Yes: Supple Respiratory: Yes: CTA Bilaterally (decreased breath sounds, no rales.) Gastrointestinal: Yes: Soft (no rebound or guarding) Cardiovascular: Yes: Regular Rate and Rhythm JVD: No Carotid Bruit: No PMI: Non-Displaced Heart Sounds: Yes: S1, S2 (No murmurs) Edema: No Neurological: Yes: Alert, Oriented - Other Data Labs, Other Data: CBC, BMP 08/19/16 05:20 08/19/16 05:20 Laboratory Tests 08/18/16 08/18/16 08/18/16 10:30 10:30 16:18 WBC Hgb Plt Count ESR 56 H Sodium Potassium BUN Creatinine Lactic Acid Total Bilirubin AST ALT Alkaline Phosphatase Creatine Kinase 468 H Troponin I 0.02 C-Reactive Protein 3.7 H Lipase 153 Urine Protein Urine Blood 08/18/16 08/19/16 08/19/16 20:00 05:20 05:20 WBC 12.3 H Hgb 11.4 Plt Count 275 ESR Sodium 138 Potassium 3.8 BUN 25 H Creatinine 1.9 H Lactic Acid Total Bilirubin 0.5 AST 13 L D ALT 14 D Alkaline Phosphatase 79 D Creatine Kinase Troponin I C-Reactive Protein Lipase Urine Protein 2+ H Urine Blood 1+ H 08/19/16 05:20 WBC Hgb Plt Count ESR Sodium Potassium BUN Creatinine Lactic Acid 1.0 Total Bilirubin AST ALT Alkaline Phosphatase Creatine Kinase Troponin I C-Reactive Protein Lipase Urine Protein Urine Blood SR 82bpm, Left axis Imaging - Results Cat Scan: Report Reviewed EKG: Image Reviewed Problem List - Problems (1) Abdominal pain Code(s): R10.9 - UNSPECIFIED ABDOMINAL PAIN Qualifiers: Abdominal location: right lower quadrant Qualified Code(s): R10.31 - Right lower quadrant pain (2) Colitis Code(s): K52.9 - NONINFECTIVE GASTROENTERITIS AND COLITIS, UNSPECIFIED (3) AAA (abdominal aortic aneurysm) Assessment/Plan: s/p stent graft repair Code(s): I71.4 - ABDOMINAL AORTIC ANEURYSM, WITHOUT RUPTURE Qualifiers: Presence of rupture: without rupture Qualified Code(s): I71.4 - Abdominal aortic aneurysm, without rupture (4) COPD (chronic obstructive pulmonary disease) Code(s): J44.9 - CHRONIC OBSTRUCTIVE PULMONARY DISEASE, UNSPECIFIED Qualifiers : COPD type: chronic bronchitis (5) Hypertensive urgency Code(s): I16.0 - HYPERTENSIVE URGENCY (6) Chronic renal disease, stage 2, mildly decreased glomerular filtration rate between 60-89 mL/min/1.73 square meter Code(s): N18.2 - CHRONIC KIDNEY DISEASE, STAGE 2 (MILD) Assessment/Plan IMP: Hypertension, chronic, uncontrolled Nausea and vomiting History of AAA s/p stent graft repair CKD REC: 1. HTN: -agree with transition to PO meds today that nausea improved -Started on Labetalol and amlodipine; hydralazine -Maintain BP around 140-50/90 2. Nausea and vomiting: -Non-contrast CT with no evidence free air or bowel obstx -?gastroenteritis vs colitis -Plan to repeat CT with contrast 3. AAA s/p stent graft: -BP control, beta crow -Vascular surgery to be consulted to review CT 4. CKD: -chronic, follow renal fxn closely in setting of fluctuating BP and volume depletion Thank you
[2016-08-19] MEDS: hydrALAZINE HCL 25 MG TABLET (FP) PO SCH ×4 (09:06→21:23)
[2016-08-19] MEDS: PANTOPRAZOLE 40 MG TABLET (FP) PO SCH (09:09)
[2016-08-19] MEDS ORDERED: LABETALOL HCL 100 MG TABLET (FP) PO SCH (10:00)
[2016-08-19] MEDS ORDERED: amLODIPine BESYLATE 10 MG TABLET (FP) PO SCH ×3 (10:00→19:15)
[2016-08-19] MEDS: NICOTINE 14 MG/24 HOURS TOPICAL PATCH TD SCH (12:00)
--- NOTE | 2016-08-19 12:06 | CON.GI ---
Consult Consult Specialty:: GI Referred by:: Dr. Kt Grant Reason for Consultation:: Abdominal pain - History of Present Illness Chief Complaint: "I was vomiting for 4 days" History of Present Illness: 86 year old female admitted through [facility] ER for evaluation of vomiting. The patient tells me that she began vomiting for 4 days. the vomiting occurred with or without meals and she tells me that for the last 4 days she was not eating much. it was non bloody and bilious at times. She denies associated abdominal pain, abdominal distention, fevers/chills, diarrhea, constipation, change in bowel habits, rectal bleeding or melena (The ER records described decreased rectal output). She denies a recent change to her medication regimen , recent travel or change in dietary patterns prior to the onset of her vomiting. In the ER triage vitals revealed revealed her to be afebrile with a markedly elevated BP of 204/108. This was attributed to the fact that along with food she was unable to take her medications. Per the ER chart RLQ pain was elicited on examination and there was concern for possible colitis. She was started on antibiotics and admitted to the ICU given her uncontrolled hypertension. The ICU nurse from last night described vomiting yeserday evening. The ICU day nurse today says that there has been no vomiting or patient complaints of nausea and Ms. Dennis herself denies any focal GI complaints currently. In terms of previous GI work-up, she was followed by gastroenterologists Dr. Blane Vargas and more recently Ottoniel Miramontes. Dr. Vargas performed EGD revealing a modest hiatal hernia,, moderate antral gastritis and no PUD. He also performed colonoscopy 05/30/06 that revealed inflammatory changes throughout the colon. Pathology from biopsies unavailable for review. Dr. Miramontes took over her care in 02/02 and performed EGD 02/02 apparently for rectal bleeding and abnormal CT scan of the abdomen (? duodenum. Reports from CT scan at that time unavailable for review). He described the duodenal sweep as extremely angulated and tight however not obstructed. A clear view of the mucosa was not possible. he advised small bowel series however previous radiology reports were unable to be accessed from this computer. He performed a colonoscopy as well that revealed moderate diverticulosis at the hepatic flexure and descending colon, sessile polyp at the splenic flexure and described the remainder of the colon as normal. He repeated procedures on Ms. Day in 04/05 for ? possible IBD of the duodenum. EGD revealed thick folds in the bulb and descending duodenum. Biopsies were obtained however unable to be reviewed at this computer at this time. there were also antral erosions and a hiatal hernia was again noted. More recently Dr. Miramontes performed a colonoscopy on Ms. Day 11/16/10 for follow-up given her history of colon polyps and ? colitis revealing severe diverticulosis in the sigmoid, descending colon, retained stool in the left colon. He noted colitis in the cecum and obtained biopsies. He though it may have been bowel prep related and maintained her on asacol. He advised a repeat colonoscopy in 5 years. 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 colitis ) Hepatobiliary: No: Cirrhosis, Cholelithiasis, Cholecystitis, Choledocholithiasis , Hepatitis A, Hepatitis B, Hepatitis C, Other Renal/: Yes: Renal Inusuff ...: No Infectious Disease: No: AIDS, C-Diff, Herpes Zoster, HIV, MRSA, STD's, Tuberculosis, VREF, Other Psych: No: Addictions, Anxiety, Bipolar, Depression, Panic, Psychosis, Schizophrenia, Other Musculoskeletal: Yes: Osteoarthritis Rheumatology: No: Fibromyalgia, Gout, Lupus, Rheumatoid Arthritis, Sarcoidosis, Vasculitis, Other ENT: No: Allergic Rhinitis, Sinusitis, Other Dermatology: No: Basal Cell, Cellulitis, Eczema, Melanoma, Psoriasis, Squamous Cell, Other Additional Medical History: CVA post AAA repair - Past Surgical History Past Surgical History: Yes: AAA Repair (complicated by transient ARF requiring HD and CVA) - Alcohol/Substance Use Hx Alcohol Use: No - Smoking History Smoking history: Current every day smoker Have you smoked in the past 12 months: Yes Aproximately how many cigarettes per day: 7 - Social History History of Recent Travel: No Home Medications - Allergies Allergies/Adverse Reactions: Allergies Allergy/AdvReac Type Severity Reaction Status Date / Time No Known Allergies Allergy Verified 08/18/16 09:32 - Home Medications Home Medications: Ambulatory Orders Amlodipine Besylate [Norvasc -] 5 mg PO DAILY 08/18/16 Atorvastatin Ca [Lipitor] 40 mg PO HS 08/18/16 Docusate Sodium [Colace -] 200 mg PO DAILY 08/18/16 Famotidine 20 mg PO DAILY 08/18/16 Ferrous Sulfate [Feosol] 325 mg PO TID 08/18/16 Folic Acid 1 mg PO DAILY 08/18/16 Losartan Potassium [Cozaar -] 25 mg PO DAILY 08/18/16 Mesalamine [Pentasa] 1,500 mg PO BID 08/18/16 Mirtazapine [Remeron -] 15 mg PO HS 08/18/16 Family Disease History - Family Disease History Other Family History: Non-Contribuatory Review of Systems - Review of Systems Constitutional: denies: Chills Cardiovascular: denies: Chest Pain Gastrointestinal: reports: Abdominal Pain (per chart however patient denies). denies: Constipation, Diarrhea Physical Exam-GI Vital Signs: Vital Signs Temperature 98.5 F 08/19/16 10:00 Pulse Rate 80 08/19/16 11:45 Respiratory Rate 19 08/19/16 11:45 Blood Pressure 137/68 08/19/16 11:45 O2 Sat by Pulse Oximetry (%) 99 08/19/16 09:00 Constitutional: Yes: Calm Eyes: No: Sclera Icterus Cardiovascular: Yes: Regular Rate and Rhythm. No: Murmur Respiratory: Yes: CTA Bilaterally Gastrointestinal Inspection: Yes: Scars (+ midline vertical abdominal surgical scar). No: Distention ...Auscultate: Yes: Normoactive Bowel Sounds ...Palpate: Yes: Other (induration in the Left mid / upper abdomen (? if related to previous endovascular procedure)). No: Hepatomegaly, Tenderness ...Percussion: No: Tympanitic (also, no succussion splash) ...Rectal Exam: Yes: Guaiac Negative (Formed ligght brown stool in the rectal vault, guaiac negative.). No: Mass Edema: No (No LE edema) Neurological: Yes: Alert Labs: CBC, BMP 08/19/16 05:20 08/19/16 05:20 Hepatic Panel Total Bilirubin 0.5 mg/dL (0.2-1.0) 08/19/16 05:20 AST 13 U/L (15-37) L D 08/19/16 05:20 ALT 14 U/L (12-78) D 08/19/16 05:20 Alkaline Phosphatase 79 U/L (45-117) D 08/19/16 05:20 Albumin 3.6 g/dl (3.4-5.0) 08/19/16 05:20 Imaging - Results Cat Scan: Report Reviewed, Image Reviewed Problem List - Problems (1) Abdominal pain Assessment/Plan: Currently patient without focal GI complaints, guaiac negative on exam and without focal findings on physical exam correlating with previously described RLQ pain. She has had no diarrhea that would correlate with a colitis history. If if she may have a mild diverticulitis however there are no pericoloic inflammatory changes noted ? if the vomiting is secondary to upper GI process (? extrinsic compression of duodenum) that was evaluated by Dr. Miramontes Also, given new findings related to her previous AAA repair, she is being evaluated by Vascular surgery Plan: For now, continue Abx Trial of clear liquids Agree with repeating CT scan of the abdomen and pelvis with PO contrast if she can tolerate liquids Vascular surgery evaluation Surgery following as well Aspiration precautions Will attempt to review previous pathology and radiographic studies Code(s): R10.9 - UNSPECIFIED ABDOMINAL PAIN Qualifiers: Abdominal location: right lower quadrant Qualified Code(s): R10.31 - Right lower quadrant pain
--- NOTE | 2016-08-19 14:55 | PN ---
Teaching Attending Note Name of Resident: Mendez Brown ATTENDING PHYSICIAN STATEMENT I saw and evaluated the patient. I reviewed the resident's note and discussed the case with the resident. I agree with the resident's findings and plan as documented. SUBJECTIVE: Patient seen and examined in the ICU. Awake and alert. (+) Nausea. No CP or SOB. BP improving, but still elevated. No ARZOLA, dizziness, BOV. Intake & Output 08/16/16 08/17/16 08/18/16 08/19/16 23:59 23:59 23:59 23:59 Intake Total 1300 Output Total 100 Balance 1200 Weight 110 lb Last Vital Signs Temp Pulse Resp BP Pulse Ox 98.2 F 72 18 109/64 99 08/19/16 13:43 08/19/16 13:43 08/19/16 13:43 08/19/16 13:43 08/19/16 09:00 Active Medications Amlodipine Besylate (Norvasc -) 10 mg PO DAILY [facility] Last Admin: 08/19/16 09:07 Dose: 10 mg Ampicillin Sodium/Sulbactam Sodium (Unasyn 1.5 Gm (Pre-Docked)) 1.5 gm IVPB Q8H -IV [facility] Last Admin: 08/19/16 09:57 Dose: 1.5 gm Hydralazine HCl (Apresoline Injection -) 10 mg IM Q6H PRN PRN Reason: SBP >180 Last Admin: 08/18/16 21:45 Dose: 10 mg Hydralazine HCl (Apresoline -) 25 mg PO QID [facility] Last Admin: 08/19/16 09:06 Dose: 25 mg Potassium Chloride/Dextrose/Sod Cl (D5-1/2ns+20 Meq Kcl -) 1,000 mls @ 100 mls/ hr IV ASDIR [facility] Last Admin: 08/18/16 17:40 Dose: 100 mls/hr Labetalol HCl (Normodyne -) 100 mg PO BID [facility] Last Admin: 08/19/16 09:05 Dose: 100 mg Nicotine (Nicoderm Patch -) 14 mg TD DAILY [facility] Last Admin: 08/18/16 22:41 Dose: 14 mg Nitroglycerin (Nitro-Bid 2% Paste -) 1 inch TD Q6HPO [facility] Last Admin: 08/19/16 06:05 Dose: 1 inch Ondansetron HCl (Zofran Injection) 4 mg IVPB Q6H PRN PRN Reason: NAUSEA Last Admin: 08/18/16 21:36 Dose: 4 mg Pantoprazole Sodium (Protonix -) 40 mg PO DAILY [facility] Last Admin: 08/19/16 09:09 Dose: 40 mg Constitutional: Yes: Awake and alert, NAD Eyes: Yes: EOM Intact Cardiovascular: Yes: Regular Rate and Rhythm, S1, S2 Respiratory: Yes: Clear Gastrointestinal: Yes: Soft, (+) BS, mild RLQ discomfort to palpation Edema: LLE: 1+, RLE: 1+ Integumentary: Yes: WNL Neurological: Yes: Alert, Oriented Psychiatric: Yes: Oriented Labs: Laboratory Results - last 24 hr 08/18/16 08/18/16 08/18/16 10:30 16:18 20:00 WBC RBC Hgb Hct MCV MCHC RDW Plt Count MPV Neutrophils % Lymphocytes % Monocytes % Eosinophils % Basophils % ESR 56 H Sodium Potassium Chloride Carbon Dioxide Anion Gap BUN Creatinine Creat Clearance w eGFR Random Glucose Lactic Acid Calcium Phosphorus Magnesium Total Bilirubin AST ALT Alkaline Phosphatase C-Reactive Protein 3.7 H Total Protein Albumin Urine Color Straw Urine Appearance Clear Urine pH 6.0 Ur Specific [place] 1.020 Urine Protein 2+ H Urine Glucose (UA) Negative Urine Ketones Negative Urine Blood 1+ H Urine Nitrite Negative Urine Bilirubin Negative Urine Urobilinogen Negative Ur Leukocyte Esterase Negative Urine RBC 3 Urine WBC 1 Ur Epithelial Cells Rare Hyaline Casts 1 Urine Mucus Rare 08/18/16 08/19/16 08/19/16 21:30 05:20 05:20 WBC 12.3 H RBC 4.11 Hgb 11.4 Hct 35.0 MCV 85.3 MCHC 32.4 RDW 15.1 Plt Count 275 MPV 6.9 L Neutrophils % 80.8 Lymphocytes % 8.9 D Monocytes % 9.3 Eosinophils % 0.7 D Basophils % 0.3 ESR Sodium 138 Potassium 3.8 Chloride 98 Carbon Dioxide 27 Anion Gap 13 BUN 25 H Creatinine 1.9 H Creat Clearance w eGFR 24.95 Random Glucose 139 H Lactic Acid 1.8 Calcium 9.0 Phosphorus 3.8 Magnesium 2.2 Total Bilirubin 0.5 AST 13 L D ALT 14 D Alkaline Phosphatase 79 D C-Reactive Protein Total Protein 7.6 Albumin 3.6 Urine Color Urine Appearance Urine pH Ur Specific [place] Urine Protein Urine Glucose (UA) Urine Ketones Urine Blood Urine Nitrite Urine Bilirubin Urine Urobilinogen Ur Leukocyte Esterase Urine RBC Urine WBC Ur Epithelial Cells Hyaline Casts Urine Mucus 08/19/16 05:20 WBC RBC Hgb Hct MCV MCHC RDW Plt Count MPV Neutrophils % Lymphocytes % Monocytes % Eosinophils % Basophils % ESR Sodium Potassium Chloride Carbon Dioxide Anion Gap BUN Creatinine Creat Clearance w eGFR Random Glucose Lactic Acid 1.0 Calcium Phosphorus Magnesium Total Bilirubin AST ALT Alkaline Phosphatase C-Reactive Protein Total Protein Albumin Urine Color Urine Appearance Urine pH Ur Specific [place] Urine Protein Urine Glucose (UA) Urine Ketones Urine Blood Urine Nitrite Urine Bilirubin Urine Urobilinogen Ur Leukocyte Esterase Urine RBC Urine WBC Ur Epithelial Cells Hyaline Casts Urine Mucus Problem List - Problems (1) AAA (abdominal aortic aneurysm) Code(s): I71.4 - ABDOMINAL AORTIC ANEURYSM, WITHOUT RUPTURE Qualifiers: Presence of rupture: without rupture Qualified Code(s): I71.4 - Abdominal aortic aneurysm, without rupture (2) Abdominal pain Code(s): R10.9 - UNSPECIFIED ABDOMINAL PAIN Qualifiers: Abdominal location: right lower quadrant Qualified Code(s): R10.31 - Right lower quadrant pain (3) Nausea & vomiting Code(s): R11.2 - NAUSEA WITH VOMITING, UNSPECIFIED (4) Hypertensive urgency Code(s): I16.0 - HYPERTENSIVE URGENCY (5) COPD (chronic obstructive pulmonary disease) Code(s): J44.9 - CHRONIC OBSTRUCTIVE PULMONARY DISEASE, UNSPECIFIED (6) CKD (chronic kidney disease) Code(s): N18.9 - CHRONIC KIDNEY DISEASE, UNSPECIFIED Assessment/Plan Noted empiric ABX for possible colitis O2 as needed Vascular consult was called Patient With no specific indication of end organ damage except for possible PAUL -> would not reduce MAP more than 25 to 30% to avoid hypoperfusion Renal dose medications IV fluids Zofran prn O2 as needed to maintain saturation VTE prophylaxis Dr Ivy critical care time spent in reviewing chart, evaluating patient and formulating plan 40 min
--- NOTE | 2016-08-19 16:06 | CONSULT ---
Consult Consult Specialty:: Nephrology Reason for Consultation:: CKD with PAUL - History of Present Illness Chief Complaint: abdominal pain History of Present Illness: Pt is an 86 year old female with pmhx of PAUL requiring HD, AAA, HTN, anemia and hyperlipidemia who presents to the ER with abdominal pain and vomiting. Pt says she had several days of vomiting about 4 or 5 times per day for about 4 days. She was found to have elevated creatinine and I was called to evaluate her. She has history of PAUL after her AAA surgery which required about 3 sessions of HD. She does not follow up with a coat maker. She was also hypertensive in the ER. She denies chest pain or palpitations. She denies dysuria or hematuria. 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 colitis ) Renal/: Yes: Renal Inusuff, Other (renal artery stents) ...: No Musculoskeletal: Yes: Osteoarthritis Additional Medical History: CVA post AAA repair - Past Surgical History Past Surgical History: Yes: AAA Repair (complicated by transient ARF requiring HD and CVA) Additional Surgical History: renal artery stents - Alcohol/Substance Use Hx Alcohol Use: No - Smoking History Smoking history: Current every day smoker Have you smoked in the past 12 months: Yes Aproximately how many cigarettes per day: 7 - Social History History of Recent Travel: No Home Medications - Allergies Allergies/Adverse Reactions: Allergies Allergy/AdvReac Type Severity Reaction Status Date / Time No Known Allergies Allergy Verified 08/18/16 09:32 - Home Medications Home Medications: Ambulatory Orders Amlodipine Besylate [Norvasc -] 5 mg PO DAILY 08/18/16 Atorvastatin Ca [Lipitor] 40 mg PO HS 08/18/16 Docusate Sodium [Colace -] 200 mg PO DAILY 08/18/16 Famotidine 20 mg PO DAILY 08/18/16 Ferrous Sulfate [Feosol] 325 mg PO TID 08/18/16 Folic Acid 1 mg PO DAILY 08/18/16 Losartan Potassium [Cozaar -] 25 mg PO DAILY 08/18/16 Mesalamine [Pentasa] 1,500 mg PO BID 08/18/16 Mirtazapine [Remeron -] 15 mg PO HS 08/18/16 Family Disease History - Family Disease History Family History: Denies Other Family History: Non-Contribuatory Review of Systems - Review of Systems Constitutional: reports: Loss of Appetite, Malaise Eyes: reports: No Symptoms HENT: reports: No Symptoms Neck: reports: No Symptoms Cardiovascular: reports: No Symptoms Respiratory: reports: No Symptoms Gastrointestinal: reports: Abdominal Pain Genitourinary: reports: No Symptoms Musculoskeletal: reports: No Symptoms Integumentary: reports: No Symptoms Neurological: reports: No Symptoms Endocrine: reports: No Symptoms Hematology/Lymphatic: reports: No Symptoms Psychiatric: reports: No Symptoms Physical Exam Vital Signs: Vital Signs Temperature 98.2 F 08/19/16 13:43 Pulse Rate 72 08/19/16 13:43 Respiratory Rate 18 08/19/16 13:43 Blood Pressure 109/64 08/19/16 13:43 O2 Sat by Pulse Oximetry (%) 99 08/19/16 09:00 Constitutional: Yes: Calm Eyes: Yes: Conjunctiva Clear HENT: Yes: Atraumatic Neck: Yes: Supple Cardiovascular: Yes: S1, S2 Respiratory: Yes: On Nasal O2 Gastrointestinal: Yes: Soft Renal/: Yes: WNL Musculoskeletal: Yes: WNL Edema: Yes Edema: LLE: Trace, RLE: Trace Neurological: Yes: Oriented Psychiatric: Yes: Oriented Labs: CBC, BMP 08/19/16 05:20 08/19/16 05:20 Laboratory Tests 08/18/16 08/18/16 08/18/16 10:02 10:30 20:00 WBC 13.2 H Hgb 12.2 Plt Count 306 Sodium Potassium Chloride Carbon Dioxide Anion Gap BUN Creatinine 1.7 H Creatine Kinase 468 H Urine Color Straw Urine Appearance Clear Urine pH 6.0 Ur Specific [place] 1.020 Urine Protein 2+ H Urine Glucose (UA) Negative Urine Ketones Negative Urine Blood 1+ H Urine Nitrite Negative Urine Bilirubin Negative Urine Urobilinogen Negative Ur Leukocyte Esterase Negative 08/19/16 08/19/16 05:20 05:20 WBC 12.3 H Hgb 11.4 Plt Count 275 Sodium 138 Potassium 3.8 Chloride 98 Carbon Dioxide 27 Anion Gap 13 BUN 25 H Creatinine 1.9 H Creatine Kinase Urine Color Urine Appearance Urine pH Ur Specific [place] Urine Protein Urine Glucose (UA) Urine Ketones Urine Blood Urine Nitrite Urine Bilirubin Urine Urobilinogen Ur Leukocyte Esterase Imaging - Results Cat Scan: Report Reviewed Ultrasound: Report Reviewed (bilateral renal artery stents, moderately atrophic kidneys) Problem List - Problems (1) AAA (abdominal aortic aneurysm) Code(s): I71.4 - ABDOMINAL AORTIC ANEURYSM, WITHOUT RUPTURE Qualifiers: Presence of rupture: without rupture Qualified Code(s): I71.4 - Abdominal aortic aneurysm, without rupture (2) Abdominal pain Code(s): R10.9 - UNSPECIFIED ABDOMINAL PAIN Qualifiers: Abdominal location: right lower quadrant Qualified Code(s): R10.31 - Right lower quadrant pain (3) CKD (chronic kidney disease) Code(s): N18.9 - CHRONIC KIDNEY DISEASE, UNSPECIFIED Qualifiers: Chronic kidney disease stage: stage 3 (moderate) Qualified Code(s): N18.3 - Chronic kidney disease, stage 3 (moderate) (4) COPD (chronic obstructive pulmonary disease) Code(s): J44.9 - CHRONIC OBSTRUCTIVE PULMONARY DISEASE, UNSPECIFIED Qualifiers : COPD type: chronic bronchitis (5) HTN (hypertension), malignant Code(s): I10 - ESSENTIAL (PRIMARY) HYPERTENSION Assessment/Plan Current Medications Generic Name Dose Route Start Last Admin Trade Name Freq PRN Reason Stop Dose Admin Amlodipine Besylate 10 mg 08/19/16 10:00 08/19/16 09:07 Norvasc - PO 10 mg DAILY [facility] Administration Ampicillin Sodium/Sulbactam Sodium 1.5 gm 08/19/16 02:00 08/19/16 09:57 Unasyn 1.5 Gm (Pre-Docked) IVPB 1.5 gm Q8H-IV [facility] Administration Hydralazine HCl 10 mg 08/18/16 21:22 08/18/16 21:45 Apresoline Injection - IM 10 mg Q6H PRN Administration SBP >180 Hydralazine HCl 25 mg 08/19/16 10:00 08/19/16 15:30 Apresoline - PO Not Given QID [facility] Potassium Chloride/Dextrose/Sod Cl 1,000 mls @ 100 mls/hr 08/18/16 16:30 17:04 D5-1/2ns+20 Meq Kcl - IV 100 mls/hr ASDIR [facility] Administration Labetalol HCl 100 mg 08/19/16 10:00 08/19/16 09:05 Normodyne - PO 100 mg BID [facility] Administration Nicotine 14 mg 08/18/16 22:00 08/19/16 12:00 Nicoderm Patch - TD 14 mg DAILY [facility] Administration Nitroglycerin 1 inch 08/18/16 17:00 08/19/16 17:02 Nitro-Bid 2% Paste - TD Not Given Q6HPO [facility] Ondansetron HCl 4 mg 08/18/16 16:20 08/18/16 21:36 Zofran Injection IVPB 4 mg Q6H PRN Administration NAUSEA Pantoprazole Sodium 40 mg 08/19/16 10:00 08/19/16 09:09 Protonix - PO 40 mg DAILY [facility] Administration Impression 1. CKD 2. hx AAA repair 3. hx of PAUL requiring HD 4. abdominal pain 5. HTN 6. COPD Plan - check urine lytes and creatinine - blood pressure is improved, monitor closely and avoid hypotension - repeat labs in am - creatinine is above baseline - pt does have stents in her renal arteries however they appear patent, the RI was not provided. Will ask vascular surgery to comment on them. - pt likely has in part superimposed pre-renal disease as she was vomiting for several days and not taking in much food - will follow Dr Appiah
[2016-08-19] MEDS: D5-1/2NS+20 MEQ KCL - 1,000 ML IV SCH (17:04)
--- NOTE | 2016-08-19 18:34 | CONSULT ---
Consult - History of Present Illness History of Present Illness: 86 year old woman with history of endovascular AAA repair at [facility] in Nov 2015. Patient does not know the size of her aneurysm at time of repair. She required bilateral renal stents (?fenestrated endograft) and was on dialysis post-op. She is no longer in renal failure. She states that she has not had any follow-up after her stent was placed. She is now admitted with abdominal pain and vomiting but is feeling better today and starting to eat. - Past Medical History MILK TESTER: Yes: Dementia Cardio/Vascular: Yes: HTN Pulmonary: Yes: COPD Gastrointestinal: Yes: Diverticulosis, Gastritis, Hiatal Hernia, Inflamatory Bowel Disease, Other (? colitis ) Hepatobiliary: No: Cirrhosis, Cholelithiasis, Cholecystitis, Choledocholithiasis , Hepatitis A, Hepatitis B, Hepatitis C, Other Renal/: Yes: Renal Inusuff, Other (renal artery stents) ...: No Infectious Disease: No: AIDS, C-Diff, Herpes Zoster, HIV, MRSA, STD's, Tuberculosis, VREF, Other Psych: No: Addictions, Anxiety, Bipolar, Depression, Panic, Psychosis, Schizophrenia, Other Musculoskeletal: Yes: Osteoarthritis Rheumatology: No: Fibromyalgia, Gout, Lupus, Rheumatoid Arthritis, Sarcoidosis, Vasculitis, Other ENT: No: Allergic Rhinitis, Sinusitis, Other Dermatology: No: Basal Cell, Cellulitis, Eczema, Melanoma, Psoriasis, Squamous Cell, Other Additional Medical History: CVA post AAA repair - Past Surgical History Past Surgical History: Yes: AAA Repair (complicated by transient ARF requiring HD and CVA) Additional Surgical History: renal artery stents - Alcohol/Substance Use Hx Alcohol Use: No - Smoking History Smoking history: Current every day smoker Have you smoked in the past 12 months: Yes Aproximately how many cigarettes per day: 7 - Social History History of Recent Travel: No Home Medications - Allergies Allergies/Adverse Reactions: Allergies Allergy/AdvReac Type Severity Reaction Status Date / Time No Known Allergies Allergy Verified 08/18/16 09:32 - Home Medications Home Medications: Ambulatory Orders Amlodipine Besylate [Norvasc -] 5 mg PO DAILY 08/18/16 Atorvastatin Ca [Lipitor] 40 mg PO HS 08/18/16 Docusate Sodium [Colace -] 200 mg PO DAILY 08/18/16 Famotidine 20 mg PO DAILY 08/18/16 Ferrous Sulfate [Feosol] 325 mg PO TID 08/18/16 Folic Acid 1 mg PO DAILY 08/18/16 Losartan Potassium [Cozaar -] 25 mg PO DAILY 08/18/16 Mesalamine [Pentasa] 1,500 mg PO BID 08/18/16 Mirtazapine [Remeron -] 15 mg PO HS 08/18/16 Family Disease History - Family Disease History Other Family History: Non-Contribuatory Physical Exam Vital Signs: Vital Signs Temperature 98 F 08/19/16 18:00 Pulse Rate 78 08/19/16 18:00 Respiratory Rate 19 08/19/16 18:00 Blood Pressure 122/63 08/19/16 18:00 O2 Sat by Pulse Oximetry (%) 99 08/19/16 09:00 Constitutional: Yes: No Distress Cardiovascular: Yes: Regular Rate and Rhythm Respiratory: Yes: Regular Gastrointestinal: Yes: Soft Peripheral Pulses WNL: Yes (Palpable DP bilaterally.) Labs: CBC, BMP 08/19/16 05:20 08/19/16 05:20 Imaging - Results Cat Scan: Pending (endograft with bilateral renal stents. Sac 4.9 cm), Image Reviewed (CT abdomen (non-contrast):) Ultrasound: Image Reviewed (Patent renal stents bilaterally.) Problem List - Problems (1) S/P AAA repair using bifurcation graft Assessment/Plan: Patent EVR graft and renal stents. Without preop reports it is difficult to assess change in sac size. With a prior endograft it is imperative that close follow-up by her vascular surgeon be done to serially assess sac size and look for possible endoleak. This should be done routinely every 6 months if stable and more often if changes are observed. Currently there is no evidence for problems requiring further interventions. Code(s): Z95.828 - PRESENCE OF OTHER VASCULAR IMPLANTS AND GRAFTS Z86.79 - PERSONAL HISTORY OF OTHER DISEASES OF THE CIRCULATORY SYSTEM
[2016-08-19] MEDS: LABETALOL HCL 100 MG TABLET (FP) PO SCH (21:23)
[2016-08-20] MEDS: NITROGLYCERIN 2% OINTMENT - 1GM PACKET TD SCH ×2 (01:13→05:59)
[2016-08-20] MEDS: hydrALAZINE HCL 25 MG TABLET (FP) PO SCH ×2 (01:13→05:47)
[2016-08-20] MEDS: AMPICILLIN NA/SULBACTAM NA 1.5 GM/100 ML PRE-DOCKED IVPB SCH ×3 (01:14→18:28)
[2016-08-20 06:40] LABS: BASOPHIL 0.2 % (0-2.0); EOSINOPHIL 1.1 % (0-4.5); MCH 28.6 pg (25.7-33.7); MCHC 33.3 g/dl (32.0-36.0); MEAN PLT VOLUME 7.2 fl (7.5-11.1); NEUTROPHILS 80.3 % (42.8-82.8); PLATELET COUNT 227 K/MM3 (134-434); RDW 14.8 % (11.6-15.6); WHITE BLOOD COUNT 13.4 K/mm3 (4.0-10.0)
[2016-08-20 07:07] LABS: CALCIUM 8.6 mg/dL (8.5-10.1)
[2016-08-20 07:12] LABS: BILIRUBIN,TOTAL 0.9 mg/dL (0.2-1.0); COCKROFT - GAULT 15.8015; TOT PROT 6.6 g/dl (6.4-8.2)
[2016-08-20] MEDS ORDERED: amLODIPine BESYLATE 5 MG TABLET (FP) PO SCH (08:02)
--- NOTE | 2016-08-20 08:10 | PN ---
Progress Note, Physician Chief Complaint: Mildly confused in ICU, Vascular, Renal, GI , cardiology consults appreciated BP is well controlled now. History of Present Illness: 2016 AORTIC ABDOMINAL ANEURYSMS STENTS. 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 sUBSEQUENTLY UNDERWENT REHAB WITH RECOVERY OF KIDNEYS FX. HTN HISTORY OF COLITIS, ?IBD AND ASACOL TREATMENT. - Current Medication List Current Medications: Active Medications Amlodipine Besylate (Norvasc -) 5 mg PO DAILY [facility] Ampicillin Sodium/Sulbactam Sodium (Unasyn 1.5 Gm (Pre-Docked)) 1.5 gm IVPB Q8H -IV [facility] Last Admin: 08/20/16 01:14 Dose: 1.5 gm Potassium Chloride/Dextrose/Sod Cl (D5-1/2ns+20 Meq Kcl -) 1,000 mls @ 100 mls/ hr IV ASDIR [facility] Last Admin: 08/19/16 17:04 Dose: 100 mls/hr Labetalol HCl (Normodyne -) 100 mg PO BID [facility] Last Admin: 08/19/16 21:23 Dose: 100 mg Nicotine (Nicoderm Patch -) 14 mg TD DAILY [facility] Last Admin: 08/19/16 12:00 Dose: 14 mg Ondansetron HCl (Zofran Injection) 4 mg IVPB Q6H PRN PRN Reason: NAUSEA Last Admin: 08/18/16 21:36 Dose: 4 mg Pantoprazole Sodium (Protonix -) 40 mg PO DAILY [facility] Last Admin: 08/19/16 09:09 Dose: 40 mg - Objective Vital Signs: Vital Signs Temperature 98.9 F 08/20/16 05:59 Pulse Rate 82 08/20/16 07:53 Respiratory Rate 20 08/20/16 07:53 Blood Pressure 150/80 08/20/16 07:53 O2 Sat by Pulse Oximetry (%) 99 08/19/16 20:00 Constitutional: Yes: Anxious, Mild Distress Eyes: Yes: Conjunctiva Clear, EOM Intact HENT: Yes: Atraumatic, Normocephalic Neck: Yes: Supple, Trachea Midline. No: Lymphadenopathy Cardiovascular: Yes: Regular Rate and Rhythm. No: Bradycardia, Tachycardia Respiratory: Yes: Regular, CTA Bilaterally. No: Accessory Muscle Use Gastrointestinal: Yes: Soft, Tenderness (RLQ). No: Abdomen, Obese, Ascites, Palpable Mass, Splenomegaly, Tenderness, Rebound, Vomiting ...Rectal Exam: Yes: Deferred Genitourinary: No: Anuria, Bladder Distention, CVA Tenderness - Right, Hematuria Musculoskeletal: Yes: Muscle Weakness. No: Back Pain, Joint Stiffness Extremities: No: Amputation, Calf Tenderness, Cold, Cyanosis Edema: No Peripheral Pulses WNL: No Peripheral Pulses: Left Doralis Pedis: 1+, Right Dorsalis Pedis: 1+ Neurological: Yes: Alert, Oriented ...Motor Strength: WNL Psychiatric: Yes: Alert, Oriented. No: Agitated, Suicidal Ideation Labs: CBC, BMP 08/20/16 05:18 08/20/16 05:18 Laboratory Results - last 24 hr 08/20/16 08/20/16 05:18 05:18 WBC 13.4 H RBC 3.44 L Hgb 9.9 L D Hct 29.6 L D MCV 86.0 MCHC 33.3 RDW 14.8 Plt Count 227 MPV 7.2 L Neutrophils % 80.3 Lymphocytes % 9.1 Monocytes % 9.3 Eosinophils % 1.1 Basophils % 0.2 Sodium 139 Potassium 4.2 Chloride 102 Carbon Dioxide 25 Anion Gap 12 BUN 25 H Creatinine 2.0 H Creat Clearance w eGFR 23.51 Random Glucose 134 H Calcium 8.6 Total Bilirubin 0.9 D AST 9 L D ALT 12 Alkaline Phosphatase 68 Total Protein 6.6 Albumin 3.0 L Problem List - Problems (1) Abdominal pain Assessment/Plan: Will attempt CT abdomen with oral contrast. Tolerates liquids PO. GI f/u Code(s): R10.9 - UNSPECIFIED ABDOMINAL PAIN Qualifiers: Abdominal location: right lower quadrant Qualified Code(s): R10.31 - Right lower quadrant pain (2) AAA (abdominal aortic aneurysm) Assessment/Plan: No evidence of leak . Pt needs to follow her vascular surgeon. Code(s): I71.4 - ABDOMINAL AORTIC ANEURYSM, WITHOUT RUPTURE Qualifiers: Presence of rupture: without rupture Qualified Code(s): I71.4 - Abdominal aortic aneurysm, without rupture (3) HTN (hypertension), malignant Assessment/Plan: Improved, will de-escolate anti-HTN meds to keep SBP in 120-140 range. Code(s): I10 - ESSENTIAL (PRIMARY) HYPERTENSION (4) CKD (chronic kidney disease) Assessment/Plan: Mild worsening of Creat-2.0-will follow continue IVF. SPEP Code(s): N18.9 - CHRONIC KIDNEY DISEASE, UNSPECIFIED Qualifiers: Chronic kidney disease stage: stage 3 (moderate) Qualified Code(s): N18.3 - Chronic kidney disease, stage 3 (moderate) (5) Delirium due to general medical condition Assessment/Plan: ICU delirium MS changes, and toxic-metabolic encepalopathy. Code(s): F05 - DELIRIUM DUE TO KNOWN PHYSIOLOGICAL CONDITION
--- NOTE | 2016-08-20 08:21 | PN ---
Progress Note, Physician Chief Complaint: denies vomiting No chest pain or SOB Awake and alert TELE: NSR with short self limited run PSVT - Current Medication List Current Medications: Active Medications Amlodipine Besylate (Norvasc -) 5 mg PO DAILY [facility] Ampicillin Sodium/Sulbactam Sodium (Unasyn 1.5 Gm (Pre-Docked)) 1.5 gm IVPB Q8H -IV [facility] Last Admin: 08/20/16 01:14 Dose: 1.5 gm Potassium Chloride/Dextrose/Sod Cl (D5-1/2ns+20 Meq Kcl -) 1,000 mls @ 100 mls/ hr IV ASDIR [facility] Last Admin: 08/19/16 17:04 Dose: 100 mls/hr Levofloxacin (Levaquin 500 Mg Premixed Ivpb -) 100 mls @ 100 mls/hr IVPB ONCE ONE Stop: 08/20/16 09:11 Labetalol HCl (Normodyne -) 100 mg PO BID [facility] Last Admin: 08/19/16 21:23 Dose: 100 mg Nicotine (Nicoderm Patch -) 14 mg TD DAILY [facility] Last Admin: 08/19/16 12:00 Dose: 14 mg Pantoprazole Sodium (Protonix -) 40 mg PO DAILY [facility] Last Admin: 08/19/16 09:09 Dose: 40 mg - Objective Vital Signs: Vital Signs Temperature 98.9 F 08/20/16 05:59 Pulse Rate 82 08/20/16 07:53 Respiratory Rate 20 08/20/16 07:53 Blood Pressure 150/80 08/20/16 07:53 O2 Sat by Pulse Oximetry (%) 99 08/19/16 20:00 Constitutional: Yes: No Distress Cardiovascular: Yes: Regular Rate and Rhythm Respiratory: Yes: CTA Bilaterally Gastrointestinal: Yes: Soft (non-tender, no rebound) Edema: Yes Edema: LLE: 1+, RLE: 1+ Neurological: Yes: Alert Labs: CBC, BMP 08/20/16 05:18 08/20/16 05:18 - ....Imaging EKG: Image Reviewed Problem List - Problems (1) Abdominal pain Code(s): R10.9 - UNSPECIFIED ABDOMINAL PAIN Qualifiers: Abdominal location: right lower quadrant Qualified Code(s): R10.31 - Right lower quadrant pain (2) Colitis Code(s): K52.9 - NONINFECTIVE GASTROENTERITIS AND COLITIS, UNSPECIFIED (3) AAA (abdominal aortic aneurysm) Code(s): I71.4 - ABDOMINAL AORTIC ANEURYSM, WITHOUT RUPTURE Qualifiers: Presence of rupture: without rupture Qualified Code(s): I71.4 - Abdominal aortic aneurysm, without rupture (4) COPD (chronic obstructive pulmonary disease) Code(s): J44.9 - CHRONIC OBSTRUCTIVE PULMONARY DISEASE, UNSPECIFIED Qualifiers : COPD type: chronic bronchitis (5) Hypertensive urgency Code(s): I16.0 - HYPERTENSIVE URGENCY (6) Chronic renal disease, stage 2, mildly decreased glomerular filtration rate between 60-89 mL/min/1.73 square meter Code(s): N18.2 - CHRONIC KIDNEY DISEASE, STAGE 2 (MILD) Assessment/Plan IMP: Hypertension, chronic, uncontrolled Nausea and vomiting History of AAA s/p stent graft repair CKD REC: 1. HTN: -improved, continue current PO meds. D/C nitropaste -Maintain BP around 140-50/90 2. Nausea and vomiting: -Non-contrast CT with no evidence free air or bowel obstx -?gastroenteritis vs colitis -Plan to repeat CT with contrast 3. AAA s/p stent graft: -BP control, beta crow -Vascular surgery evaluation noted. 4. CKD: -chronic, follow renal fxn closely in setting of fluctuating BP and volume depletion
[2016-08-20] MEDS ORDERED: LEVOFLOXACIN 500 MG IVPB 100 ML IVPB ONE (08:45)
--- NOTE | 2016-08-20 09:07 | PN ---
Physical Exam: SUBJECTIVE: Patient seen and examined was unable to sleep last night, could not name any instigating factor. Denies vomiting, chest pain, nausea, palpitations, abdominal pain, dysuria/ constipation/melena/hematochezia, visual changes. tolerating liquids well, for abdominal CT with po contrast this morning. c/o headache that starting this morning, diffuse, feels like aching. denies photophobia, tinnitus or hx of migraines OBJECTIVE: Vital Signs Period Temp Pulse Resp BP Sys/Rossi Pulse Ox Last 24 Hr 98 F-99.2 F 72-92 16-21 102-183/54-90 99-99 GENERAL: The patient is awake, alert, in no acute distress. HEAD: Normal with no signs of trauma. EYES: PERRL, extraocular movements intact, sclera anicteric, conjunctiva clear. ENT: oropharynx clear without exudates, moist mucous membranes. no erythema/ oral lesions. tongue with dark discoloration, halitosis NECK: Trachea midline, full range of motion, supple. LUNGS: Breath sounds equal, clear to auscultation bilaterally, no wheezes, no crackles, no accessory muscle use. HEART: Regular rate and rhythm, S1, S2 without murmur, rub or gallop. ABDOMEN: Soft, TTP in RLQ, nondistended, normoactive bowel sounds, no guarding, no rebound, well healed midline scar below umbilicus. EXTREMITIES: 2+ DP/radial b/l pulses, warm, well-perfused. NEUROLOGICAL: facial symmetry, Normal speech, Laboratory Results - last 24 hr 08/20/16 08/20/16 05:18 05:18 WBC 13.4 H RBC 3.44 L Hgb 9.9 L D Hct 29.6 L D MCV 86.0 MCHC 33.3 RDW 14.8 Plt Count 227 MPV 7.2 L Neutrophils % 80.3 Lymphocytes % 9.1 Monocytes % 9.3 Eosinophils % 1.1 Basophils % 0.2 Sodium 139 Potassium 4.2 Chloride 102 Carbon Dioxide 25 Anion Gap 12 BUN 25 H Creatinine 2.0 H Creat Clearance w eGFR 23.51 Random Glucose 134 H Calcium 8.6 Total Bilirubin 0.9 D AST 9 L D ALT 12 Alkaline Phosphatase 68 Total Protein 6.6 Albumin 3.0 L Active Medications Generic Name Dose Route Start Last Admin Trade Name Freq PRN Reason Stop Dose Admin Amlodipine Besylate 5 mg 08/20/16 08:02 Norvasc - PO DAILY [facility] Ampicillin Sodium/Sulbactam Sodium 1.5 gm 08/19/16 02:00 08/20/16 01:14 Unasyn 1.5 Gm (Pre-Docked) IVPB 1.5 gm Q8H-IV [facility] Administration Potassium Chloride/Dextrose/Sod Cl 1,000 mls @ 100 mls/hr 08/18/16 16:30 17:04 D5-1/2ns+20 Meq Kcl - IV 100 mls/hr ASDIR [facility] Administration Levofloxacin 100 mls @ 100 mls/hr 08/20/16 08:45 Levaquin 500 Mg Premixed Ivpb - IVPB 08/20/16 09:44 ONCE ONE Labetalol HCl 100 mg 08/19/16 19:12 08/19/16 21:23 Normodyne - PO 100 mg BID [facility] Administration Nicotine 14 mg 08/18/16 22:00 08/19/16 12:00 Nicoderm Patch - TD 14 mg DAILY [facility] Administration Pantoprazole Sodium 40 mg 08/19/16 10:00 08/19/16 09:09 Protonix - PO 40 mg DAILY [facility] Administration ASSESSMENT/PLAN: 86 yr woman with HTN, COPD (current smoker) with abdominal infrarenal aortic anuerysm s/p stent placedment, hx of CVA presented to ED with intractable vomiting and abdominal pain for 4 days, found to have enlargement of aortic anuerysm and HTN urgency. Cardiovascular HTN emergency - improving - at home SBP 150-180. maintain SBP between 140-150, avoid hypotension or sudden fluctuates of BP, plan to reduce BP 25% over 24hrs Hydralazine 25mg po q6h germán if SBP >180 Labetalol 100mg po BID if SBP> 160, DBP >100 - plan to titrate up if HR stable and BP remained elevated Norvasc 10mg po daily IVF d5-1/2NS+20meq kcl @75cc/hr Aortic aneurysm - increased in size from 4.9 from 4.5, mural thrombus noted on CT scan. consult: dr. Castillo; no surgical intervention at this time. rec f/u with vascular surgeon as outpatient Renal (baseline Cr 1.4) PAUL, Cr 2.0 in setting of poor po intake and elevated BP, likely pre-renal - Cr rising - IVF, urine studies - renal ultrasound shows atrophic and echogenic kidneys consistent with medical renal disease and patent renal stents b/l. consult:Dr. Appiah GI RLQ pain - possible vs IBD CT with oral contrast normal appendix, no CT evidence of acute process CT scan with unremarkable pancreas/appendix and without colitis Unasyn q8hr, ivpb for possible gastritis as cause of vomiting. vomiting now resolved. Consult: Dr. Tejeda Pulmonary pt is a chronic everyday smoker, nicotine patch provided decrease IVF from 100cc to 75cc; left pleural effusion noted on abdominal CT scan incentive spirometer QID ID leucocytosis, on unasyn, possible GI origin of leucocytosis DVT: scd's Diet: liquid diet Dispo: can be monitored on floor Visit type - Emergency Visit Emergency Visit: No - New Patient This patient is new to me today: No - Critical Care Critical Care patient: Yes Total Critical Care Time (in minutes): 38 Critical Care Statement: The care of this patient involved high complexity decision making to prevent further life threatening deterioration of the patient 's condition and/or to evalute & treat vital organ system(s) failure or risk of failure.
[2016-08-20] MEDS: PANTOPRAZOLE 40 MG TABLET (FP) PO SCH (11:22)
[2016-08-20] MEDS: LABETALOL HCL 100 MG TABLET (FP) PO SCH ×2 (11:30→21:59)
--- NOTE | 2016-08-20 12:03 | PN ---
Progress Note, Physician History of Present Illness: Pt seen and examined at bedside. She is more awake and alert today. She denies abdominal pain. - Current Medication List Current Medications: Active Medications Amlodipine Besylate (Norvasc -) 5 mg PO DAILY [facility] Last Admin: 08/20/16 11:22 Dose: 5 mg Ampicillin Sodium/Sulbactam Sodium (Unasyn 1.5 Gm (Pre-Docked)) 1.5 gm IVPB Q8H -IV [facility] Last Admin: 08/20/16 11:22 Dose: 1.5 gm Potassium Chloride/Dextrose/Sod Cl (D5-1/2ns+20 Meq Kcl -) 1,000 mls @ 100 mls/ hr IV ASDIR [facility] Last Admin: 08/19/16 17:04 Dose: 100 mls/hr Labetalol HCl (Normodyne -) 100 mg PO BID [facility] Last Admin: 08/19/16 21:23 Dose: 100 mg Nicotine (Nicoderm Patch -) 14 mg TD DAILY [facility] Last Admin: 08/19/16 12:00 Dose: 14 mg Pantoprazole Sodium (Protonix -) 40 mg PO DAILY [facility] Last Admin: 08/20/16 11:22 Dose: 40 mg - Objective Vital Signs: Vital Signs Temperature 98.9 F 08/20/16 05:59 Pulse Rate 86 08/20/16 11:45 Respiratory Rate 20 08/20/16 11:45 Blood Pressure 168/76 08/20/16 11:45 O2 Sat by Pulse Oximetry (%) 99 08/20/16 08:43 Constitutional: Yes: Calm Eyes: Yes: Conjunctiva Clear HENT: Yes: Atraumatic Cardiovascular: Yes: S1, S2 Respiratory: Yes: CTA Bilaterally Gastrointestinal: Yes: Soft Genitourinary: Yes: WNL Musculoskeletal: Yes: WNL Edema: No Neurological: Yes: Oriented Psychiatric: Yes: Oriented Labs: CBC, BMP 08/20/16 05:18 08/20/16 05:18 Problem List - Problems (1) AAA (abdominal aortic aneurysm) Code(s): I71.4 - ABDOMINAL AORTIC ANEURYSM, WITHOUT RUPTURE Qualifiers: Presence of rupture: without rupture Qualified Code(s): I71.4 - Abdominal aortic aneurysm, without rupture (2) Abdominal pain Code(s): R10.9 - UNSPECIFIED ABDOMINAL PAIN Qualifiers: Abdominal location: right lower quadrant Qualified Code(s): R10.31 - Right lower quadrant pain (3) CKD (chronic kidney disease) Code(s): N18.9 - CHRONIC KIDNEY DISEASE, UNSPECIFIED Qualifiers: Chronic kidney disease stage: stage 3 (moderate) Qualified Code(s): N18.3 - Chronic kidney disease, stage 3 (moderate) (4) COPD (chronic obstructive pulmonary disease) Code(s): J44.9 - CHRONIC OBSTRUCTIVE PULMONARY DISEASE, UNSPECIFIED Qualifiers : COPD type: chronic bronchitis (5) HTN (hypertension), malignant Code(s): I10 - ESSENTIAL (PRIMARY) HYPERTENSION Assessment/Plan Current Medications Generic Name Dose Route Start Last Admin Trade Name Freq PRN Reason Stop Dose Admin Amlodipine Besylate 5 mg 08/20/16 08:02 08/20/16 11:22 Norvasc - PO 5 mg DAILY [facility] Administration Ampicillin Sodium/Sulbactam Sodium 1.5 gm 08/19/16 02:00 08/20/16 11:22 Unasyn 1.5 Gm (Pre-Docked) IVPB 1.5 gm Q8H-IV [facility] Administration Potassium Chloride/Dextrose/Sod Cl 1,000 mls @ 100 mls/hr 08/18/16 16:30 17:04 D5-1/2ns+20 Meq Kcl - IV 100 mls/hr ASDIR [facility] Administration Labetalol HCl 100 mg 08/19/16 19:12 08/19/16 21:23 Normodyne - PO 100 mg BID [facility] Administration Nicotine 14 mg 08/18/16 22:00 08/19/16 12:00 Nicoderm Patch - TD 14 mg DAILY [facility] Administration Pantoprazole Sodium 40 mg 08/19/16 10:00 08/20/16 11:22 Protonix - PO 40 mg DAILY [facility] Administration Impression 1. CKD 2. hx AAA repair 3. hx of PAUL requiring HD 4. abdominal pain 5. HTN 6. COPD Plan - urine studies are not done yet, spoke to nurse - follow up repeat ct scan - creatinine is higher today, will continue to observe - avoid hypotension - vascular surgery input appreciated - can keep on fluids for now - pt likely has in part superimposed pre-renal disease as she was vomiting for several days and not taking in much food - will follow Dr Appiah
[2016-08-20] MEDS: NICOTINE 14 MG/24 HOURS TOPICAL PATCH TD SCH (12:40)
--- NOTE | 2016-08-20 13:08 | PN ---
Teaching Attending Note Name of Resident: Mendez Brown ATTENDING PHYSICIAN STATEMENT I saw and evaluated the patient. I reviewed the resident's note and discussed the case with the resident. I agree with the resident's findings and plan as documented. SUBJECTIVE: Patient seen and examined in the ICU. Awake and alert. No CP or SOB. BP parameters improving. (+) ARZOLA. No dizziness or BOV. Intake & Output 08/17/16 08/18/16 08/19/16 08/20/16 23:59 23:59 23:59 23:59 Intake Total 2190 1250 Output Total 100 Balance 2090 1250 Weight 110 lb 113 lb 8 oz Last Vital Signs Temp Pulse Resp BP Pulse Ox 98.9 F 88 26 H 143/85 99 08/20/16 05:59 08/20/16 12:35 08/20/16 12:35 08/20/16 12:35 08/20/16 08:43 Active Medications Amlodipine Besylate (Norvasc -) 5 mg PO DAILY [facility] Last Admin: 08/20/16 11:22 Dose: 5 mg Ampicillin Sodium/Sulbactam Sodium (Unasyn 1.5 Gm (Pre-Docked)) 1.5 gm IVPB Q8H -IV [facility] Last Admin: 08/20/16 11:22 Dose: 1.5 gm Potassium Chloride/Dextrose/Sod Cl (D5-1/2ns+20 Meq Kcl -) 1,000 mls @ 100 mls/ hr IV ASDIR [facility] Last Admin: 08/19/16 17:04 Dose: 100 mls/hr Labetalol HCl (Normodyne -) 100 mg PO BID [facility] Last Admin: 08/20/16 11:30 Dose: 100 mg Nicotine (Nicoderm Patch -) 14 mg TD DAILY [facility] Last Admin: 08/20/16 12:40 Dose: 14 mg Pantoprazole Sodium (Protonix -) 40 mg PO DAILY [facility] Last Admin: 08/20/16 11:22 Dose: 40 mg Constitutional: Yes: Awake and alert, NAD Eyes: Yes: EOM Intact Cardiovascular: Yes: Regular Rate and Rhythm, S1, S2 Respiratory: Yes: Clear Gastrointestinal: Yes: Soft, (+) BS, minimal RLQ discomfort to palpation Edema: LLE: 1+, RLE: 1+ Integumentary: Yes: WNL Neurological: Yes: Alert, Oriented Psychiatric: Yes: Oriented Labs: Laboratory Results - last 24 hr 08/20/16 08/20/16 05:18 05:18 WBC 13.4 H RBC 3.44 L Hgb 9.9 L D Hct 29.6 L D MCV 86.0 MCHC 33.3 RDW 14.8 Plt Count 227 MPV 7.2 L Neutrophils % 80.3 Lymphocytes % 9.1 Monocytes % 9.3 Eosinophils % 1.1 Basophils % 0.2 Sodium 139 Potassium 4.2 Chloride 102 Carbon Dioxide 25 Anion Gap 12 BUN 25 H Creatinine 2.0 H Creat Clearance w eGFR 23.51 Random Glucose 134 H Calcium 8.6 Total Bilirubin 0.9 D AST 9 L D ALT 12 Alkaline Phosphatase 68 Total Protein 6.6 Albumin 3.0 L Problem List - Problems (1) AAA (abdominal aortic aneurysm) Code(s): I71.4 - ABDOMINAL AORTIC ANEURYSM, WITHOUT RUPTURE Qualifiers: Presence of rupture: without rupture Qualified Code(s): I71.4 - Abdominal aortic aneurysm, without rupture (2) Abdominal pain Code(s): R10.9 - UNSPECIFIED ABDOMINAL PAIN Qualifiers: Abdominal location: right lower quadrant Qualified Code(s): R10.31 - Right lower quadrant pain (3) Nausea & vomiting Code(s): R11.2 - NAUSEA WITH VOMITING, UNSPECIFIED (4) Hypertensive urgency Code(s): I16.0 - HYPERTENSIVE URGENCY (5) COPD (chronic obstructive pulmonary disease) Code(s): J44.9 - CHRONIC OBSTRUCTIVE PULMONARY DISEASE, UNSPECIFIED (6) CKD (chronic kidney disease) Code(s): N18.9 - CHRONIC KIDNEY DISEASE, UNSPECIFIED Assessment/Plan Noted empiric ABX for possible colitis O2 as needed Renal dose medications IV fluids Zofran prn O2 as needed to maintain saturation For CT chest VTE prophylaxis Dr Ivy critical care time spent in reviewing chart, evaluating patient and formulating plan 40 min
[2016-08-20] MEDS ORDERED: ACETAMINOPHEN 325 MG TABLET (FP) PO ONE (14:16)
[2016-08-20] MEDS ORDERED: D5-1/2NS+20 MEQ KCL - 1,000 ML IV SCH (14:19)
--- NOTE | 2016-08-20 16:11 | PN ---
GI Progress Note Subjective: GI: Denies pain. Wants to eat real food. CT reveals no acute inflammatory or obstructive processes. - Objective Vital Signs: Vital Signs Temperature 97.8 F 08/20/16 15:28 Pulse Rate 76 08/20/16 15:28 Respiratory Rate 20 08/20/16 15:28 Blood Pressure 130/72 08/20/16 15:28 O2 Sat by Pulse Oximetry (%) 96 08/20/16 14:16 Constitutional: No Distress ...Auscultate: Yes: Normoactive Bowel Sounds ...Palpate: Yes: Soft, Other (nontender) Labs: CBC, BMP 08/20/16 05:18 08/20/16 05:18 Assessment/Plan Will start trial of solids. Dr Miramontes will be covering over the next 3 days. Please call him as needed.
[2016-08-21] MEDS: ZOLPIDEM TARTRATE 5 MG TABLET PO PRN ×2 (00:39→22:07)
[2016-08-21] MEDS: AMPICILLIN NA/SULBACTAM NA 1.5 GM/100 ML PRE-DOCKED IVPB SCH ×3 (03:55→17:44)
[2016-08-21 08:22] LABS: BASOPHIL 0.5 % (0-2.0); EOSINOPHIL 1.1 % (0-4.5); MCH 28.8 pg (25.7-33.7); MCHC 33.7 g/dl (32.0-36.0); MEAN CELL VOLUME 85.7 fl (80-96); MEAN PLT VOLUME 7.6 fl (7.5-11.1); NEUTROPHILS 79.6 % (42.8-82.8); PLATELET COUNT 241 K/MM3 (134-434); RDW 14.6 % (11.6-15.6)
--- NOTE | 2016-08-21 09:03 | PN ---
Progress Note, Physician - Current Medication List Current Medications: Active Medications Amlodipine Besylate (Norvasc -) 5 mg PO DAILY [facility] Ampicillin Sodium/Sulbactam Sodium (Unasyn 1.5 Gm (Pre-Docked)) 1.5 gm IVPB Q8H -IV [facility] Last Admin: 08/21/16 03:55 Dose: 1.5 gm Potassium Chloride/Dextrose/Sod Cl (D5-1/2ns+20 Meq Kcl -) 1,000 mls @ 75 mls/ hr IV ASDIR [facility] Last Admin: 08/20/16 15:30 Dose: 75 mls/hr Labetalol HCl (Normodyne -) 100 mg PO BID [facility] Last Admin: 08/20/16 21:59 Dose: 100 mg Nicotine (Nicoderm Patch -) 14 mg TD DAILY [facility] Pantoprazole Sodium (Protonix -) 40 mg PO DAILY [facility] Zolpidem Tartrate (Ambien -) 5 mg PO HS PRN Last Admin: 08/21/16 00:39 Dose: 5 mg - Objective Vital Signs: Vital Signs Temperature 98.4 F 08/21/16 05:53 Pulse Rate 89 08/21/16 05:53 Respiratory Rate 18 08/21/16 05:53 Blood Pressure 138/88 08/21/16 05:53 O2 Sat by Pulse Oximetry (%) 96 08/20/16 21:00 Eyes: Yes: WNL, Conjunctiva Clear, EOM Intact HENT: Yes: WNL, Atraumatic, Normocephalic Neck: Yes: WNL, Supple, Trachea Midline Cardiovascular: Yes: WNL, Regular Rate and Rhythm Respiratory: Yes: WNL, Regular, CTA Bilaterally Gastrointestinal: Yes: WNL, Normal Bowel Sounds Genitourinary: Yes: WNL Musculoskeletal: Yes: WNL Extremities: Yes: WNL Edema: Yes Integumentary: Yes: WNL Neurological: Yes: WNL, Alert, Oriented ...Motor Strength: WNL Psychiatric: Yes: WNL Labs: CBC, BMP 08/21/16 05:43 Laboratory Results - last 24 hr 08/20/16 08/20/16 08/21/16 12:29 12:30 05:43 WBC 12.0 H RBC 3.36 L Hgb 9.7 L Hct 28.8 L MCV 85.7 MCHC 33.7 RDW 14.6 Plt Count 241 MPV 7.6 Neutrophils % 79.6 Lymphocytes % 9.5 Monocytes % 9.3 Eosinophils % 1.1 Basophils % 0.5 Ur Random Sodium 64 Ur Random Potassium 37.0 Ur Random Chloride 88 Urine Creatinine 96.2 Assessment/Plan IMP: Hypertension, chronic, uncontrolled Nausea and vomiting History of AAA s/p stent graft repair CKD REC: 1. HTN: -improved, continue current PO meds. D/C nitropaste -Maintain BP around 140-50/90 2. Nausea and vomiting: -Non-contrast CT with no evidence free air or bowel obstx -?gastroenteritis vs colitis -Plan to repeat CT with contrast 3. AAA s/p stent graft: -BP control, beta crow -Vascular surgery evaluation noted. 4. CKD: -chronic, follow renal fxn closely in setting of fluctuating BP and volume depletion cardiac titus stable d/c telemetry
[2016-08-21] MEDS ORDERED: NICOTINE 14 MG/24 HOURS TOPICAL PATCH TD SCH (10:00)
[2016-08-21 10:01] LABS: ALBUMIN 2.9 g/dl (3.4-5.0); BILIRUBIN,TOTAL 0.7 mg/dL (0.2-1.0); CALCIUM 9.2 mg/dL (8.5-10.1); COCKROFT - GAULT 16.626; CREATININE 1.9 mg/dL (0.55-1.02); TOT PROT 6.6 g/dl (6.4-8.2)
[2016-08-21] MEDS: amLODIPine BESYLATE 10 MG TABLET (FP) PO SCH (11:08)
[2016-08-21] MEDS: PANTOPRAZOLE 40 MG TABLET (FP) PO SCH (11:09)
[2016-08-21] MEDS: LABETALOL HCL 100 MG TABLET (FP) PO SCH ×2 (11:09→22:07)
--- NOTE | 2016-08-21 12:34 | PN ---
Progress Note (short form) - Note Progress Note: RENAL Pt is awake and alert comfortable Last Vital Signs Temp Pulse Resp BP Pulse Ox 98.4 F 89 18 138/88 96 08/21/16 05:53 08/21/16 05:53 08/21/16 05:53 08/21/16 05:53 08/20/16 21:00 lungs clear cvs s1s2 rr abd soft ext trace edema neuro a+ox3 CBC, BMP 08/21/16 05:43 08/21/16 05:43 Current Medications Generic Name Dose Route Start Last Admin Trade Name Freq PRN Reason Stop Dose Admin Amlodipine Besylate 5 mg 08/21/16 10:00 08/21/16 11:08 Norvasc - PO 5 mg DAILY [facility] Administration Ampicillin Sodium/Sulbactam Sodium 1.5 gm 08/20/16 18:00 08/21/16 03:55 Unasyn 1.5 Gm (Pre-Docked) IVPB 1.5 gm Q8H-IV [facility] Administration Potassium Chloride/Dextrose/Sod Cl 1,000 mls @ 75 mls/hr 08/20/16 14:19 15:30 D5-1/2ns+20 Meq Kcl - IV 75 mls/hr ASDIR [facility] Administration Labetalol HCl 100 mg 08/20/16 22:00 08/21/16 11:09 Normodyne - PO 100 mg BID [facility] Administration Nicotine 14 mg 08/21/16 10:00 08/21/16 11:11 Nicoderm Patch - TD 14 mg DAILY [facility] Administration Pantoprazole Sodium 40 mg 08/21/16 10:00 08/21/16 11:09 Protonix - PO 40 mg DAILY [facility] Administration Zolpidem Tartrate 5 mg 08/20/16 23:58 08/21/16 00:39 Ambien - PO 5 mg HS PRN Administration IMPRESSION 1. CKD- proteinuria 2. hx AAA repair 3. hx of PAUL requiring HD 4. abdominal pain 5. HTN 6. COPD Plan continue current management avoid nephrotoxins dc k in fluids monitor renal function urine protein and creatinine MV
--- NOTE | 2016-08-21 14:13 | PN ---
Progress Note (short form) - Note Progress Note: Awake and alert. No CP or SOB. BP much better controlled. No acute events overnight. Intake & Output 08/18/16 08/19/16 08/20/16 08/21/16 23:59 23:59 23:59 23:59 Intake Total 3390 2570 850 Output Total 100 450 Balance 3290 2120 850 Weight 110 lb 113 lb 8 oz Last Vital Signs Temp Pulse Resp BP Pulse Ox 98.4 F 89 18 138/88 96 08/21/16 05:53 08/21/16 05:53 08/21/16 05:53 08/21/16 05:53 08/20/16 21:00 Active Medications Amlodipine Besylate (Norvasc -) 5 mg PO DAILY [facility] Last Admin: 08/21/16 11:08 Dose: 5 mg Ampicillin Sodium/Sulbactam Sodium (Unasyn 1.5 Gm (Pre-Docked)) 1.5 gm IVPB Q8H -IV [facility] Last Admin: 08/21/16 03:55 Dose: 1.5 gm Potassium Chloride/Dextrose/Sod Cl (D5-1/2ns+20 Meq Kcl -) 1,000 mls @ 75 mls/ hr IV ASDIR [facility] Last Admin: 08/20/16 15:30 Dose: 75 mls/hr Labetalol HCl (Normodyne -) 100 mg PO BID [facility] Last Admin: 08/21/16 11:09 Dose: 100 mg Nicotine (Nicoderm Patch -) 14 mg TD DAILY [facility] Last Admin: 08/21/16 11:11 Dose: 14 mg Pantoprazole Sodium (Protonix -) 40 mg PO DAILY [facility] Last Admin: 08/21/16 11:09 Dose: 40 mg Zolpidem Tartrate (Ambien -) 5 mg PO HS PRN Last Admin: 08/21/16 00:39 Dose: 5 mg Constitutional: Yes: Awake and alert, NAD Eyes: Yes: EOM Intact Cardiovascular: Yes: Regular Rate and Rhythm, S1, S2 Respiratory: Yes: Clear Gastrointestinal: Yes: Soft, (+) BS Edema: LLE: 1+, RLE: 1+ Integumentary: Yes: WNL Neurological: Yes: Alert, Oriented Psychiatric: Yes: Oriented Labs: Laboratory Results - last 24 hr 08/20/16 08/20/16 08/21/16 12:29 12:30 05:43 WBC 12.0 H RBC 3.36 L Hgb 9.7 L Hct 28.8 L MCV 85.7 MCHC 33.7 RDW 14.6 Plt Count 241 MPV 7.6 Neutrophils % 79.6 Lymphocytes % 9.5 Monocytes % 9.3 Eosinophils % 1.1 Basophils % 0.5 Sodium Potassium Chloride Carbon Dioxide Anion Gap BUN Creatinine Creat Clearance w eGFR Random Glucose Calcium Total Bilirubin AST ALT Alkaline Phosphatase Total Protein Albumin Ur Random Sodium 64 Ur Random Potassium 37.0 Ur Random Chloride 88 Urine Creatinine 96.2 08/21/16 05:43 WBC RBC Hgb Hct MCV MCHC RDW Plt Count MPV Neutrophils % Lymphocytes % Monocytes % Eosinophils % Basophils % Sodium 136 Potassium 4.7 Chloride 102 Carbon Dioxide 24 Anion Gap 10 BUN 24 H Creatinine 1.9 H Creat Clearance w eGFR 24.95 Random Glucose 101 D Calcium 9.2 Total Bilirubin 0.7 D AST 13 L D ALT 10 L Alkaline Phosphatase 69 Total Protein 6.6 Albumin 2.9 L Ur Random Sodium Ur Random Potassium Ur Random Chloride Urine Creatinine Problem List - Problems (1) AAA (abdominal aortic aneurysm) Code(s): I71.4 - ABDOMINAL AORTIC ANEURYSM, WITHOUT RUPTURE Qualifiers: Presence of rupture: without rupture Qualified Code(s): I71.4 - Abdominal aortic aneurysm, without rupture (2) Abdominal pain Code(s): R10.9 - UNSPECIFIED ABDOMINAL PAIN Qualifiers: Abdominal location: right lower quadrant Qualified Code(s): R10.31 - Right lower quadrant pain (3) Nausea & vomiting Code(s): R11.2 - NAUSEA WITH VOMITING, UNSPECIFIED (4) Hypertensive urgency Code(s): I16.0 - HYPERTENSIVE URGENCY (5) COPD (chronic obstructive pulmonary disease) Code(s): J44.9 - CHRONIC OBSTRUCTIVE PULMONARY DISEASE, UNSPECIFIED (6) CKD (chronic kidney disease) Code(s): N18.9 - CHRONIC KIDNEY DISEASE, UNSPECIFIED Assessment/Plan Empiric ABX for possible colitis O2 as needed VTE prophylaxis BP meds as ordered Dr Ivy
[2016-08-21] MEDS ORDERED: SODIUM PHOSPHATE/NA BIPHOS 133 ML ENEMA PR ONE (14:46)
--- NOTE | 2016-08-21 14:46 | PN ---
Progress Note (short form) - Note Progress Note: Awake, alert, tolerates PO fluids, food No vomiting Vital Signs - 24 hr 08/20/16 08/20/16 08/20/16 15:28 18:00 21:00 Temperature 97.8 F 97.6 F Pulse Rate 76 74 Respiratory 20 20 Rate Blood Pressure 130/72 120/65 O2 Sat by Pulse 96 Oximetry (%) 08/21/16 08/21/16 02:00 05:53 Temperature 98.4 F 98.4 F Pulse Rate 77 89 Respiratory 20 18 Rate Blood Pressure 127/68 138/88 O2 Sat by Pulse Oximetry (%) Lungs no rales, decreased BS at left base Heart S1S2 regular Abdomen soft, Active BS Urinates well No BM Laboratory Results - last 24 hr 08/20/16 08/20/16 08/21/16 12:29 12:30 05:43 WBC 12.0 H RBC 3.36 L Hgb 9.7 L Hct 28.8 L MCV 85.7 MCHC 33.7 RDW 14.6 Plt Count 241 MPV 7.6 Neutrophils % 79.6 Lymphocytes % 9.5 Monocytes % 9.3 Eosinophils % 1.1 Basophils % 0.5 Sodium Potassium Chloride Carbon Dioxide Anion Gap BUN Creatinine Creat Clearance w eGFR Random Glucose Calcium Total Bilirubin AST ALT Alkaline Phosphatase Total Protein Albumin Ur Random Sodium 64 Ur Random Potassium 37.0 Ur Random Chloride 88 Urine Creatinine 96.2 08/21/16 05:43 WBC RBC Hgb Hct MCV MCHC RDW Plt Count MPV Neutrophils % Lymphocytes % Monocytes % Eosinophils % Basophils % Sodium 136 Potassium 4.7 Chloride 102 Carbon Dioxide 24 Anion Gap 10 BUN 24 H Creatinine 1.9 H Creat Clearance w eGFR 24.95 Random Glucose 101 D Calcium 9.2 Total Bilirubin 0.7 D AST 13 L D ALT 10 L Alkaline Phosphatase 69 Total Protein 6.6 Albumin 2.9 L Ur Random Sodium Ur Random Potassium Ur Random Chloride Urine Creatinine Plan Laxatives. Stop IV fluids IV Abx x24 hrs D/c planning-discussed with [phone] Current Active Problems Problem Status Diagnosed AAA (abdominal aortic aneurysm) Acute Abdominal pain Acute Acute colitis Acute CKD (chronic kidney disease) Acute COPD (chronic obstructive pulmonary disease) Acute Chronic renal disease, stage 2, mildly decreased glomerular filtration rate between 60-89 mL/min/1.73 square meter Acute Colitis Acute Delirium due to general medical condition Acute HTN (hypertension), malignant Acute Hypertensive urgency Acute Nausea & vomiting Acute S/P AAA repair using bifurcation graft Acute Problem List - Problems (1) Abdominal pain Code(s): R10.9 - UNSPECIFIED ABDOMINAL PAIN Qualifiers: Abdominal location: right lower quadrant Qualified Code(s): R10.31 - Right lower quadrant pain (2) AAA (abdominal aortic aneurysm) Code(s): I71.4 - ABDOMINAL AORTIC ANEURYSM, WITHOUT RUPTURE Qualifiers: Presence of rupture: without rupture Qualified Code(s): I71.4 - Abdominal aortic aneurysm, without rupture (3) HTN (hypertension), malignant Code(s): I10 - ESSENTIAL (PRIMARY) HYPERTENSION (4) CKD (chronic kidney disease) Code(s): N18.9 - CHRONIC KIDNEY DISEASE, UNSPECIFIED Qualifiers: Chronic kidney disease stage: stage 3 (moderate) Qualified Code(s): N18.3 - Chronic kidney disease, stage 3 (moderate) (5) Delirium due to general medical condition Code(s): F05 - DELIRIUM DUE TO KNOWN PHYSIOLOGICAL CONDITION
[2016-08-21] MEDS ORDERED: PT OWN MED DRAWER 7, Y5N ONE (14:51)
[2016-08-21] MEDS ORDERED: ACETAMINOPHEN 325 MG TABLET (FP) PO ONE (20:30)
[2016-08-21] MEDS: POLYETHYLENE GLYCOL 3350 119 GM BTL PO SCH (22:06)
[2016-08-22] MEDS: LABETALOL HCL 100 MG TABLET (FP) PO SCH (01:00)
[2016-08-22] MEDS ORDERED: PT OWN MED DRAWER 7, Y5N ONE (01:50)
[2016-08-22] MEDS: AMPICILLIN NA/SULBACTAM NA 1.5 GM/100 ML PRE-DOCKED IVPB SCH (02:30)
--- NOTE | 2016-08-22 04:11 | HOSP ---
Subjective - Review of Symptoms General: No: Chills, Night Sweats HEENT: Yes: Head Aches. No: Visual Changes Pulmonary: No: Dyspnea, Cough, Pleuritic Chest Pain Cardiovascular: No: Chest Pain, Light Headedness Gastrointestinal: No: Nausea, Vomiting, Abdominal Pain Musculoskeletal: Yes: No Symptoms Physical Examination Vital Signs: Vital Signs Temperature 97.6 F 08/22/16 01:00 Pulse Rate 76 08/22/16 01:00 Respiratory Rate 20 08/22/16 01:00 Blood Pressure 166/98 08/22/16 01:00 O2 Sat by Pulse Oximetry (%) 97 08/21/16 21:00 Constitutional: Yes: Calm Eyes: Yes: Conjunctiva Clear, EOM Intact, PERRL HENT: Yes: Normocephalic Cardiovascular: Yes: Regular Rate and Rhythm Musculoskeletal: Yes: WNL Extremities: Yes: WNL Peripheral Pulses: Left Doralis Pedis: 2+, Right Dorsalis Pedis: 2+ Neurological: Yes: Alert, Oriented, Cran Nerves II-XII Intact. No: Confusion, Facial Droop, Loss of Sensation, Numbness, Seizure ...Motor Strength: WNL Labs: CBC, BMP 08/21/16 05:43 08/21/16 05:43 Hospitalist Encounter Assessment: This is a 86 yo woman that while attempting to self ambulate to BR lost her balance and fell onto her knees and then continued to the floor striking her head on the floor. Fall was witnessed by MOTOR OPERATOR who states that patient never lost consciousness and remained A&Ox3 throughout. Patient with poorly defined headache of mild intensity at present. Pt is not on AC therapy and has a normal plt count but given her age, CTH was ordered. No tenderness, deformity or crepitus to b/l knees, hips or ankles. Dr Grant's paging service made aware. Outcome: My read of CT- no bleeding or mass effect present. Await official read. Primary Physician Notified: Kt Grant Time PMD Notified: 04:20
[2016-08-22] MEDS ORDERED: ACETAMINOPHEN 325 MG TABLET (FP) PO ONE (04:13)
--- NOTE | 2016-08-22 07:10 | PN ---
Progress Note (short form) - Note Progress Note: Fell in the room today AM. Was seen by hospitalist. Head CT-negative. Today awake, alert, NAD Feels well, wants to go home. Had BM x1 Vital Signs - 24 hr 08/21/16 08/21/16 08/21/16 10:00 15:22 17:00 Temperature 98.5 F 98.2 F 98.6 F Pulse Rate 82 81 77 Respiratory 20 18 20 Rate Blood Pressure 158/88 125/64 124/63 O2 Sat by Pulse 96 Oximetry (%) 08/21/16 08/22/16 08/22/16 21:00 01:00 03:50 Temperature 99.2 F 97.6 F 97.8 F Pulse Rate 83 76 84 Respiratory 20 20 20 Rate Blood Pressure 142/75 166/98 180/94 O2 Sat by Pulse 97 Oximetry (%) 08/22/16 05:36 Temperature 98.0 F Pulse Rate 64 Respiratory 20 Rate Blood Pressure 120/65 O2 Sat by Pulse Oximetry (%) Neck-no JVD Lungs Clear Heart S1S2 regular Abdomen soft, NT Ext-warm, trace edema. Moves well all extremities. Laboratory Results - last 24 hr 08/21/16 08/21/16 05:43 05:43 WBC 12.0 H RBC 3.36 L Hgb 9.7 L Hct 28.8 L MCV 85.7 MCHC 33.7 RDW 14.6 Plt Count 241 MPV 7.6 Neutrophils % 79.6 Lymphocytes % 9.5 Monocytes % 9.3 Eosinophils % 1.1 Basophils % 0.5 Sodium 136 Potassium 4.7 Chloride 102 Carbon Dioxide 24 Anion Gap 10 BUN 24 H Creatinine 1.9 H Creat Clearance w eGFR 24.95 Random Glucose 101 D Calcium 9.2 Total Bilirubin 0.7 D AST 13 L D ALT 10 L Alkaline Phosphatase 69 Total Protein 6.6 Albumin 2.9 L Current Active Problems Problem Status Diagnosed AAA (abdominal aortic aneurysm) Acute Abdominal pain Acute Acute colitis Acute CKD (chronic kidney disease) Acute COPD (chronic obstructive pulmonary disease) Acute Chronic renal disease, stage 2, mildly decreased glomerular filtration rate between 60-89 mL/min/1.73 square meter Acute Colitis Acute Delirium due to general medical condition Acute HTN (hypertension), malignant Acute Hypertensive urgency Acute Nausea & vomiting Acute S/P AAA repair using bifurcation graft Acute Plan D/c Home. Received ABX x5 days-will D/C. Home services arranged. Will follow as out pt next week. 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 Problem List - Problems (1) Abdominal pain Code(s): R10.9 - UNSPECIFIED ABDOMINAL PAIN Qualifiers: Abdominal location: right lower quadrant Qualified Code(s): R10.31 - Right lower quadrant pain (2) AAA (abdominal aortic aneurysm) Code(s): I71.4 - ABDOMINAL AORTIC ANEURYSM, WITHOUT RUPTURE Qualifiers: Presence of rupture: without rupture Qualified Code(s): I71.4 - Abdominal aortic aneurysm, without rupture (3) HTN (hypertension), malignant Code(s): I10 - ESSENTIAL (PRIMARY) HYPERTENSION (4) CKD (chronic kidney disease) Code(s): N18.9 - CHRONIC KIDNEY DISEASE, UNSPECIFIED Qualifiers: Chronic kidney disease stage: stage 3 (moderate) Qualified Code(s): N18.3 - Chronic kidney disease, stage 3 (moderate) (5) Delirium due to general medical condition Code(s): F05 - DELIRIUM DUE TO KNOWN PHYSIOLOGICAL CONDITION
--- NOTE | 2016-08-22 07:13 | DS ---
Physical Examination Vital Signs: Vital Signs Temperature 98.0 F 08/22/16 05:36 Pulse Rate 64 08/22/16 05:36 Respiratory Rate 20 08/22/16 05:36 Blood Pressure 120/65 08/22/16 05:36 O2 Sat by Pulse Oximetry (%) 97 08/21/16 21:00 Constitutional: Yes: No Distress, Calm Eyes: Yes: Conjunctiva Clear, EOM Intact HENT: Yes: Atraumatic, Normocephalic Neck: Yes: Supple, Trachea Midline Cardiovascular: Yes: Regular Rate and Rhythm Respiratory: Yes: Regular, CTA Bilaterally Gastrointestinal: Yes: Normal Bowel Sounds, Soft. No: Abdomen, Obese, Ascites ...Rectal Exam: Yes: Deferred Renal/: No: Anuria, Bladder Distention Musculoskeletal: Yes: Muscle Weakness. No: Joint Swelling, Muscle Pain Extremities: No: Calf Tenderness, Cold, Cyanosis Edema: Yes Edema: LLE: Trace, RLE: Trace Integumentary: Yes: WNL Neurological: Yes: Alert, Oriented, Pre-Existing Deficit. No: Aphasia, Asterixis, Dysarthria, Facial Droop, Lethargy, Numbness, Tremors ...Motor Strength: WNL Psychiatric: Yes: Alert, Oriented. No: Agitated, Suicidal Ideation Labs: CBC, BMP 08/21/16 05:43 08/21/16 05:43 Discharge Summary Reason For Visit: NAUSEA,VOMITING,ABD PAIN,ACUTE COLITIS Current Active Problems AAA (abdominal aortic aneurysm) (Acute) Abdominal pain (Acute) Acute colitis (Acute) CKD (chronic kidney disease) (Acute) COPD (chronic obstructive pulmonary disease) (Acute) Chronic renal disease, stage 2, mildly decreased glomerular filtration rate between 60-89 mL/min/1.73 square meter (Acute) Colitis (Acute) Delirium due to general medical condition (Acute) HTN (hypertension), malignant (Acute) Hypertensive urgency (Acute) Nausea & vomiting (Acute) S/P AAA repair using bifurcation graft (Acute) Condition: Stable - Instructions Referrals: Kt Grant MD [Primary Care Provider] - - Home Medications Comprehensive Discharge Medication List: Ambulatory Orders Amlodipine Besylate [Norvasc -] 5 mg PO DAILY 08/18/16 Atorvastatin Ca [Lipitor] 40 mg PO HS 08/18/16 Docusate Sodium [Colace -] 200 mg PO DAILY 08/18/16 Famotidine 20 mg PO DAILY 08/18/16 Ferrous Sulfate [Feosol] 325 mg PO TID 08/18/16 Folic Acid 1 mg PO DAILY 08/18/16 Losartan Potassium [Cozaar -] 25 mg PO DAILY 08/18/16 Mesalamine [Pentasa] 1,500 mg PO BID 08/18/16 Mirtazapine [Remeron -] 15 mg PO HS 08/18/16
[2016-08-22] MEDS ORDERED: LABETALOL HCL 100 MG TABLET (FP) PO SCH (07:17)
[2016-08-22] MEDS: PANTOPRAZOLE 40 MG TABLET (FP) PO SCH (08:45)
[2016-08-22] MEDS: POLYETHYLENE GLYCOL 3350 119 GM BTL PO SCH (08:45)
[2016-08-22] MEDS: amLODIPine BESYLATE 10 MG TABLET (FP) PO SCH (08:46)
--- NOTE | 2016-08-22 09:02 | PN ---
Progress Note, Physician - Current Medication List Current Medications: Active Medications Amlodipine Besylate (Norvasc -) 5 mg PO DAILY [facility] Last Admin: 08/22/16 08:46 Dose: 5 mg Labetalol HCl (Normodyne -) 100 mg PO BID [facility] Last Admin: 08/22/16 08:45 Dose: 100 mg Nicotine (Nicoderm Patch -) 14 mg TD DAILY [facility] Last Admin: 08/21/16 11:11 Dose: 14 mg Pantoprazole Sodium (Protonix -) 40 mg PO DAILY [facility] Last Admin: 08/22/16 08:45 Dose: 40 mg Polyethylene Glycol (Miralax (For Daily Use) -) 17 gm PO BID [facility] Last Admin: 08/22/16 08:45 Dose: 17 gm - Objective Vital Signs: Vital Signs Temperature 98.0 F 08/22/16 05:36 Pulse Rate 64 08/22/16 05:36 Respiratory Rate 20 08/22/16 05:36 Blood Pressure 120/65 08/22/16 05:36 O2 Sat by Pulse Oximetry (%) 97 08/21/16 21:00 Eyes: Yes: WNL, Conjunctiva Clear, EOM Intact HENT: Yes: WNL, Atraumatic, Normocephalic Neck: Yes: WNL, Supple, Trachea Midline Cardiovascular: Yes: WNL, Regular Rate and Rhythm Respiratory: Yes: WNL, Regular, CTA Bilaterally Gastrointestinal: Yes: WNL, Normal Bowel Sounds Genitourinary: Yes: WNL Musculoskeletal: Yes: WNL Extremities: Yes: WNL Edema: No Integumentary: Yes: WNL Neurological: Yes: WNL, Alert, Oriented ...Motor Strength: WNL Psychiatric: Yes: WNL Labs: CBC, BMP 08/21/16 05:43 08/21/16 05:43 Assessment/Plan IMP: Hypertension, chronic, uncontrolled Nausea and vomiting History of AAA s/p stent graft repair CKD REC: 1. HTN: -improved, continue current PO meds. 2. Nausea and vomiting: -Non-contrast CT with no evidence free air or bowel obstx -?gastroenteritis vs colitis -Plan to repeat CT with contrast 3. AAA s/p stent graft: -BP control, beta crow -Vascular surgery evaluation noted. 4. CKD: -chronic, follow renal fxn closely in setting of fluctuating BP and volume depletion cardiac titus stable d/c telemetry
--- NOTE | 2016-08-22 11:33 | PN ---
Progress Note (short form) - Note Progress Note: RENAL Pt is awake and alert comfortable Last Vital Signs Temp Pulse Resp BP Pulse Ox 98.0 F 64 20 120/65 97 08/22/16 05:36 08/22/16 05:36 08/22/16 05:36 08/22/16 05:36 08/21/16 21:00 lungs clear cvs s1s2 rr abd soft ext trace edema neuro a+ox3 CBC, BMP 08/21/16 05:43 08/21/16 05:43 Current Medications Generic Name Dose Route Start Last Admin Trade Name Zonia PRN Reason Stop Dose Admin Amlodipine Besylate 5 mg 08/21/16 10:00 08/22/16 08:46 Norvasc - PO 5 mg DAILY [facility] Administration Labetalol HCl 100 mg 08/22/16 07:17 08/22/16 08:45 Normodyne - PO 100 mg BID [facility] Administration Nicotine 14 mg 08/21/16 10:00 08/21/16 11:11 Nicoderm Patch - TD 14 mg DAILY [facility] Administration Pantoprazole Sodium 40 mg 08/21/16 10:00 08/22/16 08:45 Protonix - PO 40 mg DAILY [facility] Administration Polyethylene Glycol 17 gm 08/21/16 22:00 08/22/16 08:45 Miralax (For Daily Use) - PO 17 gm BID [facility] Administration IMPRESSION 1. CKD- proteinuria 2. hx AAA repair 3. hx of PAUL requiring HD 4. abdominal pain 5. HTN 6. COPD Plan doing well being discharged should have outpatient renal follow up MV
[2016-08-22 13:26] VITALS: BP 147/84; PULSE 87; TEMP 98.1
[2016-08-25 00:06] LABS: A/G RATIO 0.9 (0.7-1.7); ALBUMIN 3.1 g/dL (2.9-4.4); GLOBULIN, TOTAL 3.4 g/dL (2.2-3.9); M-SPIKE Not Observed g/dL (Not Observed); TOTAL PROTEIN 6.5 g/dL (6.0-8.5)
== END 2016-08-22 11:47 | disposition home or self-care (01) | DRG 305 ==
LOC: JER 08:52 → JERBED 14:16 → JICU 18:56 → J4W 08-20 15:35
PROVIDERS: ADMIT Internal Medicine; ATTEND Internal Medicine
DX: I16.0 Hypertensive urgency (principal); N17.9 Acute kidney failure, unspecified; F05 Delirium due to known physiological condition; I47.1 Supraventricular tachycardia; K52.9 Noninfective gastroenteritis and colitis, unspecified; E78.5 Hyperlipidemia, unspecified; H40.9 Unspecified glaucoma; I71.4 Abdominal aortic aneurysm, without rupture; J44.9 Chronic obstructive pulmonary disease, unspecified; I12.9 Hypertensive chronic kidney disease with stage 1 through stage 4 chronic kidney disease, or unspecified chronic kidney disease; F17.210 Nicotine dependence, cigarettes, uncomplicated; N18.3 Chronic kidney disease, stage 3 (moderate)
CPT/HCPCS: 36415; 70450-TC; 74176-TC; 80048; 80053; 81003; 81015; 82436; 82550; 82553; 82570; 83605; 83690; 83735; 84100; 84133; 84155; 84165; 84300; 84484; 85025; 85651; 86140; 93005; 93010; 93976; 99284-25